=== PATIENT | female | born 1980 | race Two or more races ===

== ENCOUNTER 2016-08-03 16:13 | Emergency (ER) | payer BC ==
[2016-08-03] MEDS ORDERED: IV NORMAL SALINE 1000ML BAG 1,000 ML IV ONE (16:45)
[2016-08-03] MEDS ORDERED: FAMOTIDINE 20 MG/2 ML VIAL IVP ONE (16:45)
[2016-08-03] MEDS: MORPHINE SULFATE 10 MG/ML VIAL. IV ONE ×2 (16:45→17:14)
[2016-08-03] MEDS ORDERED: LIDO:MAALOX:DONNATAL 1:1:1 15 ML SINGLE DOSE SWSW ONE (16:45)
--- NOTE | 2016-08-03 16:52 | PHYS DOC ---
Past Medical History Past Medical History: Diabetes-Type II, GERD Past Surgical History: Other Additional Past Surgical Histo: EGD, hital hernia Alcohol Use: None Drug Use: None Adult General Chief Complaint Chief Complaint: FLANK PAIN HPI HPI Patient is a 35 year old female with history of gestational diabetes, acid reflux, who presents today with midepigastric radiating to her back, as well as moderate right upper quadrant abdominal pain. Patient states the midepigastric abdominal pain is chronic due to her acid reflex, she states she was seen by the PCP today and was sent to the ED for abdominal ultrasound to check on her gallbladder. Patient states she takes Tums for her acid reflex. She states she has already seen GI for her chronic acid reflex. Patient denies any chance she is though she states she has an Implanon which has . Denies any nausea vomiting. Denies any urgency frequency or dysuria. Review of Systems Review of Systems Constitutional: Denies fever or chills [] Eyes: Denies change in visual acuity, redness, or eye pain [] HENT: Denies nasal congestion or sore throat [] Respiratory: Denies cough or shortness of breath [] Cardiovascular: No additional information not addressed in HPI [] GI: epigastric and right upper quadrant abdominal pain, : Denies dysuria or hematuria [] Musculoskeletal: Denies back pain or joint pain [] Integument: Denies rash or skin lesions [] Neurologic: Denies headache, focal weakness or sensory changes [] Endocrine: Denies polyuria or polydipsia [] Current Medications Current Medications Current Medications Medications (Trade) Dose Ordered Sig/[facility] Start Time Stop Time Status Last Admin Dose Admin Famotidine 20 mg 20 mg 1X ONCE 08/03/16 16:45 08/03/16 17:08 DC 08/03/16 17:13 20 MG Morphine Sulfate 5 mg 1X ONCE 08/03/16 16:45 08/03/16 17:08 DC Multi-Ingredient Mouthwash/Gargle (Gi Cocktail Single Dose) 15 ml 1X ONCE 08/03/16 16:45 08/03/16 17:08 DC 08/03/16 17:14 15 ML Ondansetron HCl (Zofran Odt) 4 mg 1X ONCE 08/03/16 17:00 08/03/16 17:08 DC 08/03/16 17:13 4 MG Potassium Chloride (Klor-Con) 20 meq 1X ONCE 08/03/16 18:45 08/03/16 18:46 DC Sodium Chloride (Iv Sodium Chloride 0.9% 1000ml Bag) 1,000 ml @ 1,000 mls/hr 1X ONCE 08/03/16 16:45 08/03/16 17:44 DC 08/03/16 17:14 1,000 MLS/HR Allergies Allergies Allergies Coded Allergies Type Severity Reaction Last Updated Verified No Known Drug Allergies 08/03/16 No Physical Exam Physical Exam Constitutional: Well developed, well nourished, no acute distress, non-toxic appearance. [] HENT: Normocephalic, atraumatic, bilateral external ears normal, oropharynx moist, no oral exudates, nose normal. [] Eyes: PERRLA, EOMI, conjunctiva normal, no discharge. [] Neck: Normal range of motion, no tenderness, supple, no stridor. [] Cardiovascular:Heart rate regular rhythm, no murmur [] Lungs & Thorax: Bilateral breath sounds clear to auscultation [] Abdomen: Rounded abdomen. Bowel sounds normal, soft, slight right upper quadrant and mid epigastric tenderness, negative Bahena's sign, negative obturator sign,negative Rovsing sign guarding no rebound tenderness, no masses, no pulsatile masses. [] Skin: Warm, dry, no erythema, no rash. [] Back: No tenderness, no CVA tenderness. [] Extremities: No tenderness, no cyanosis, no clubbing, ROM intact, no edema. [] Neurologic: Alert and oriented X 3, normal motor function, normal sensory function, no focal deficits noted. [] Psychologic: Affect normal, judgement normal, mood normal. [] Current Patient Data Vital Signs Vital Signs Date Time Temp Pulse Resp B/P Pulse Ox O2 Delivery O2 Flow Rate FiO2 08/03/16 18:00 72 120/73 98 Room Air 08/03/16 16:37 98.6 18 98.6 Lab Values Laboratory Tests Test 08/03/16 16:46 08/03/16 17:05 Urine Color Yellow Urine Clarity Clear Urine pH 6.0 Urine Specific [place] 1.010 Urine Protein Negativemg/dL (NEG-TRACE) Urine Glucose (UA) Negativemg/dL (NEG) Urine Ketones (Stick) 40mg/dL (NEG) Urine Blood Negative (NEG) Urine Nitrite Negative (NEG) Urine Bilirubin Negative (NEG) Urine Urobilinogen Dipstick 0.2mg/dL (0.2 mg/dL) Urine Leukocyte Esterase Negative (NEG) Urine RBC 0/HPF (0-2) Urine WBC Occ/HPF (0-4) Urine Squamous Epithelial Cells Occ/LPF Urine Bacteria Few/HPF (0-FEW) Urine Mucus Slight/LPF Urine Test Negative (NEG) White Blood Count 11.5x10^3/uL (4.0-11.0) H Red Blood Count 4.83x10^6/uL (3.50-5.40) Hemoglobin 15.1g/dL (12.0-15.5) Hematocrit 44.9% (36.0-47.0) Mean Corpuscular Volume 93fL (79-100) Mean Corpuscular Hemoglobin 31pg (25-35) Mean Corpuscular Hemoglobin Concent 34g/dL (31-37) Red Cell Distribution Width 12.7% (11.5-14.5) Platelet Count 274x10^3/uL (140-400) Neutrophils (%) (Auto) 73% (31-73) Lymphocytes (%) (Auto) 20% (24-48) L Monocytes (%) (Auto) 6% (0-9) Eosinophils (%) (Auto) 1% (0-3) Basophils (%) (Auto) 1% (0-3) Neutrophils # (Auto) 8.4x10^3uL (1.8-7.7) H Lymphocytes # (Auto) 2.3x10^3/uL (1.0-4.8) Monocytes # (Auto) 0.7x10^3/uL (0.0-1.1) Eosinophils # (Auto) 0.1x10^3/uL (0.0-0.7) Basophils # (Auto) 0.1x10^3/uL (0.0-0.2) Sodium Level 145mmol/L (136-145) Potassium Level 3.3mmol/L (3.5-5.1) L Chloride Level 107mmol/L (98-107) Carbon Dioxide Level 29mmol/L (21-32) Anion Gap 9 (6-14) Blood Urea Nitrogen 3mg/dL (7-20) L Creatinine 0.6mg/dL (0.6-1.0) Estimated GFR (Cockcroft-Gault) 115.1 BUN/Creatinine Ratio 5 (6-20) L Glucose Level 103mg/dL (70-99) H Calcium Level 9.0mg/dL (8.5-10.1) Total Bilirubin 0.4mg/dL (0.2-1.0) Aspartate Amino Transferase (AST) 17U/L (15-37) Alanine Aminotransferase (ALT) 40U/L (14-59) Alkaline Phosphatase 67U/L (46-116) Total Protein 7.6g/dL (6.4-8.2) Albumin 3.7g/dL (3.4-5.0) Albumin/Globulin Ratio 0.9 (1.0-1.7) L Lipase 138U/L (73-393) Laboratory Tests 08/03/16 17:05 Laboratory Tests 08/03/16 17:05 EKG EKG [] Radiology/Procedures Radiology/Procedures [] Course & Med Decision Making Course & Med Decision Making Pertinent Labs and Imaging studies reviewed. (See chart for details) Patient with history of acid reflex is in the ED today for midepigastric radiating to her back, as well as moderate right upper quadrant abdominal pain. She was seen by the PCP today for acid reflex and was sent to the ED for an ultrasound to check on her gallbladder. Negative urine hCG, CBC with a WBC of 11.5, CMP with potassium of 3.3, patient was given 20 mEq of potassium replacement in the ED. Lipase is normal, urine analysis is negative for infection. Abdominal ultrasound is negative for any acute findings. Patient's symptoms are more consistent with acid reflex. She states she has a prescription for medication that was sent to her pharmacist by her PCP for GERD which i encouraged her to ensure she takes it. She is currently comfortable in no distress. She was given GI cocktail famotidine and morphine in the ED with very good relief of her symptoms. She was provided return precautions and discharged in stable condition Dragon Disclaimer Dragon Disclaimer This electronic medical record was generated, in whole or in part, using a voice recognition dictation system. Departure Departure Impression: Primary Impression: GERD (gastroesophageal reflux disease) Disposition: 01 HOME, SELF-CARE Condition: STABLE Referrals: EDUIN YU MD follow up with the GI doctor and your own doctor in one week Patient Instructions: Gastroesophageal Reflux Disease, Adult, [id number] Additional Instructions: You were seen for acid reflex. Please take the medication your doctor sent to pharmacy. Come back to the Ed if symptoms worsen. Problem Qualifiers Primary Impression: GERD (gastroesophageal reflux disease) Esophagitis presence: esophagitis presence not specified Qualified Code: K21.9 - Gastro-esophageal reflux disease without esophagitis LEONIDES CHAPIN APRN Aug 03, 2016 16:52
[2016-08-03] MEDS ORDERED: ONDANSETRON ODT 4 MG TAB.RAPDIS PO ONE (17:00)
[2016-08-03 17:06] LABS: NEG OBC UR NEG; POS OBC UR POS
[2016-08-03 17:08] LABS: BILIRUBIN,URINE NEGATIVE (NEG); GLUCOSE,URINE NEGATIVE (NEG); NITRITE,URINE NEGATIVE (NEG); PROTEIN,URINE NEGATIVE (NEG-TRACE); UROBILINOGEN,URINE 0.2 mg/dL (0.2 mg/dL)
[2016-08-03 17:15] LABS: BASO # 0.1 x10^3/uL (0.0-0.2); BASO % 1 % (0-3); EOS % 1 % (0-3); HEMATOCRIT 44.9 % (36.0-47.0); HEMOGLOBIN 15.1 g/dL (12.0-15.5); LYMPH # 2.3 x10^3/uL (1.0-4.8); LYMPH % 20 % (24-48); MEAN CORPUSCULAR HEMOGLOBIN 31 pg (25-35); MEAN CORPUSCULAR HGB CONC 34 g/dL (31-37); MEAN CORPUSCULAR VOLUME 93 fL (79-100); MONO % 6 % (0-9); NEUT % 73 % (31-73); PLATELET COUNT 274 x10^3/uL (140-400); RED BLOOD COUNT 4.83 x10^6/uL (3.50-5.40); RED CELL DISTRIBUTION WIDTH 12.7 % (11.5-14.5); WHITE BLOOD COUNT 11.5 x10^3/uL (4.0-11.0)
[2016-08-03 17:21] LABS: CREATININE 0.6 mg/dL (0.6-1.0); GFR 115.1; POTASSIUM 3.3 mmol/L (3.5-5.1)
[2016-08-03 17:27] LABS: ALBUMIN 3.7 g/dL (3.4-5.0); ALBUMIN/GLOBULIN RATIO 0.9 (1.0-1.7); TOTAL BILIRUBIN 0.4 mg/dL (0.2-1.0); TOTAL PROTEIN 7.6 g/dL (6.4-8.2)
[2016-08-03 17:45] LABS: BACTERIA,URINE FEW /HPF (0-FEW); RBC,URINE 0 /HPF (0-2); SQUAMOUS EPITHELIAL CELL,UR OCC /LPF; WBC,URINE OCC /HPF (0-4)
--- NOTE | 2016-08-03 17:58 | RAD ---
PROCEDURE Abdomen sonogram. HISTORY Right upper quadrant pain. TECHNIQUE Sonographic imaging of the abdomen was performed. COMPARISON None. FINDINGS The liver is normal in size. No focal hepatic lesion is seen. There is hepatic steatosis. The gallbladder and common bile duct are unremarkable. The kidneys, spleen, aorta and inferior vena cava are unremarkable. The pancreatic tail is obscured due to bowel gas. IMPRESSION 1. Hepatic steatosis. 2. Obscured pancreatic tail due to bowel gas. 3. Otherwise, unremarkable abdomen sonogram. Electronically signed by: Kayla Menchaca (Aug 03, 2016 17:57:45)
[2016-08-03] MEDS ORDERED: POTASSIUM CHLORIDE 20 MEQ TABLET.ER. PO ONE (18:45)
[2016-08-03 19:00] VITALS: BP 117/78
== END 2016-08-03 19:29 | disposition home or self-care (01) ==
LOC: ER 16:13
DX: K21.9 Gastro-esophageal reflux disease without esophagitis (principal); E11.9 Type 2 diabetes mellitus without complications
CPT/HCPCS: 36415; 76700; 80053; 81001; 81025; 83690; 85027; 96361; 96374; 99285; J7030; Q0162; S0028; J2270

== ENCOUNTER 2016-09-16 08:27 | Emergency (ER) | payer BC ==
[~2016-09-16] VITALS: Ht 154.9 cm; Wt 84.8 kg
[2016-09-16] MEDS ORDERED: IV NORMAL SALINE 1000ML BAG 1,000 ML IV SCH (08:41)
[2016-09-16] MEDS ORDERED: 0.9 % SODIUM CHLORIDE 10 ML DISP.SYRIN. IV PRN (08:45)
[2016-09-16] MEDS ORDERED: METOCLOPRAMIDE HCL 10 MG/2 ML VIAL. IV ONE (08:45)
[2016-09-16] MEDS ORDERED: DIPHENHYDRAMINE 50 MG/ML VIAL IVP ONE (08:45)
[2016-09-16] MEDS ORDERED: KETOROLAC TROMETHAMINE 30 MG/ML SYRINGE. IV ONE (08:45)
--- NOTE | 2016-09-16 08:53 | PHYS DOC ---
Past Medical History Past Medical History: Diabetes-Type II, GERD Additional Past Medical Histor: hiatal hernia Past Surgical History: Other Additional Past Surgical Histo: EGD, hital hernia Alcohol Use: None Drug Use: None Adult General Chief Complaint Chief Complaint: HEADACHE HPI HPI Patient is a 36 year old female presents emergency room with multiple complaints: 1. Atraumatic headache that is been ongoing for greater than a month. Patient states that she had a CT scan at [facility] last month which was reported as normal with the exception of sinusitis. She has also been seen by ENT at [facility] and is currently taking Flonase and Afrin nasal spray. Patient denies history headaches. Patient denies sudden onset of this headache. She denies any previous head injuries such as skull fractures or brain bleeds. 2. Epigastric pain with reflux that's been ongoing for 2-1/2-3 weeks. Patient is currently on Prilosec for her reflux. She does not see a cleaner and presser. She has had a workup done at this facility in the past for evaluation of her gallbladder and other gastrointestinal ailments. 3. Atraumatic low back pain for one and a half weeks. Patient denies any history of chronic back pain. She denies any history of spinal column or spinal cord injuries. She denies any history of bone forming disorders. Patient states that the pain does not radiate. She denies saddle anesthesia or bowel/urinary incontinence. Patient denies hospitalization, antibiotic use or foreign travel within the past 90 days. Review of Systems Review of Systems Constitutional: Denies fever or chills [] Eyes: Denies change in visual acuity, redness, or eye pain [] HENT: Denies nasal congestion or sore throat [] Respiratory: Denies cough or shortness of breath [] Cardiovascular: No additional information not addressed in HPI [] GI: Denies abdominal pain, nausea, vomiting, bloody stools or diarrhea [] : Denies dysuria or hematuria [] Musculoskeletal: Denies back pain or joint pain [] Integument: Denies rash or skin lesions [] Neurologic: Denies headache, focal weakness or sensory changes [] Endocrine: Denies polyuria or polydipsia [] Current Medications Current Medications Current Medications Medications (Trade) Dose Ordered Sig/[facility] Start Time Stop Time Status Last Admin Dose Admin Diphenhydramine HCl (Benadryl) 25 mg 1X ONCE 09/16/16 08:45 09/16/16 08:53 DC 09/16/16 09:01 25 MG Ketorolac Tromethamine (Toradol) 30 mg 1X ONCE 09/16/16 08:45 09/16/16 08:53 DC 09/16/16 09:02 30 MG Metoclopramide HCl (Reglan) 10 mg 1X ONCE 09/16/16 08:45 09/16/16 08:53 DC 09/16/16 09:02 10 MG Sodium Chloride (Iv Sodium Chloride 0.9% 1000ml Bag) 1,000 ml @ 1,000 mls/hr Q1H 09/16/16 08:41 09/16/16 09:40 DC 09/16/16 09:02 1,000 MLS/HR Sodium Chloride (Normal Saline Flush) 10 ml QSHIFT PRN 09/16/16 08:45 Allergies Allergies Allergies Coded Allergies Type Severity Reaction Last Updated Verified No Known Drug Allergies 08/03/16 No Physical Exam Physical Exam Constitutional: Well developed, well nourished, no acute distress, non-toxic appearance. Patient sitting upright on the edge of the bed. HENT: Normocephalic, atraumatic, bilateral external ears normal, oropharynx moist, no oral exudates, boggy nasal mucosa with scant amount of clear rhinorrhea. Patient complains of tenderness to percussion to both her frontal and maxillary sinuses. Eyes: PERRLA, EOMI, conjunctiva normal, no discharge. Direct funduscopic exam shows bilateral homogenous fundi without vascular abnormalities. Optic disc and cup with crisp margins. Neck: Normal range of motion, no tenderness, supple, no stridor. Negative Brudzinski's. There is no cervical lymphadenopathy. Cardiovascular:Heart rate regular rhythm, no murmur Lungs & Thorax: Bilateral breath sounds clear to auscultation Abdomen: Abdomen is soft and nondistended. There are normal active bowel sounds in all 4 quadrants. There is no palpable defect to the abdominal wall or pulsatile mass. Patient complains of tenderness in the epigastric region. There is no rebound or guarding. Skin: Warm, dry, no erythema, no rash. [] Back back is normal in appearance. There is no CVA tenderness. There is tenderness to palpation to bilateral paraspinous soft tissues at the level of L4 -L5. There is no palpable defect, deformity or spasm. Extremities: No tenderness, no cyanosis, no clubbing, ROM intact, no edema. [] Neurologic: Alert and oriented X 3, cranial nerves II through XII are intact. Patient is able perform rapid alternating movement and [id number] without difficulty. Romberg is negative for pronator drift. Patient ambulatory a steady , unaided gait. Psychologic: Affect normal, judgement normal, dysphoric mood with flat affect. Current Patient Data Vital Signs Vital Signs Date Time Temp Pulse Resp B/P Pulse Ox O2 Delivery O2 Flow Rate FiO2 09/16/16 08:37 98.6 75 18 121/71 96 Room Air 98.6 Lab Values Laboratory Tests Test 09/16/16 08:37 09/16/16 09:00 Urine Collection Type Unknown Urine Color Yellow Urine Clarity Clear Urine pH 7.5 Urine Specific [place] <=1.005 Urine Protein Negativemg/dL (NEG-TRACE) Urine Glucose (UA) Negativemg/dL (NEG) Urine Ketones (Stick) Negativemg/dL (NEG) Urine Blood Large (NEG) Urine Nitrite Negative (NEG) Urine Bilirubin Negative (NEG) Urine Urobilinogen Dipstick 0.2mg/dL (0.2 mg/dL) Urine Leukocyte Esterase Negative (NEG) Urine RBC 1-2/HPF (0-2) Urine WBC 0/HPF (0-4) Urine Squamous Epithelial Cells Mod/LPF Urine Bacteria Few/HPF (0-FEW) White Blood Count 7.8x10^3/uL (4.0-11.0) Red Blood Count 4.37x10^6/uL (3.50-5.40) Hemoglobin 13.9g/dL (12.0-15.5) Hematocrit 41.6% (36.0-47.0) Mean Corpuscular Volume 95fL (79-100) Mean Corpuscular Hemoglobin 32pg (25-35) Mean Corpuscular Hemoglobin Concent 33g/dL (31-37) Red Cell Distribution Width 13.3% (11.5-14.5) Platelet Count 293x10^3/uL (140-400) Neutrophils (%) (Auto) 67% (31-73) Lymphocytes (%) (Auto) 26% (24-48) Monocytes (%) (Auto) 6% (0-9) Eosinophils (%) (Auto) 0% (0-3) Basophils (%) (Auto) 1% (0-3) Neutrophils # (Auto) 5.3x10^3uL (1.8-7.7) Lymphocytes # (Auto) 2.0x10^3/uL (1.0-4.8) Monocytes # (Auto) 0.5x10^3/uL (0.0-1.1) Eosinophils # (Auto) 0.0x10^3/uL (0.0-0.7) Basophils # (Auto) 0.0x10^3/uL (0.0-0.2) Sodium Level 147mmol/L (136-145) H Potassium Level 3.6mmol/L (3.5-5.1) Chloride Level 108mmol/L (98-107) H Carbon Dioxide Level 30mmol/L (21-32) Anion Gap 9 (6-14) Blood Urea Nitrogen 5mg/dL (7-20) L Creatinine 0.6mg/dL (0.6-1.0) Estimated GFR (Cockcroft-Gault) 114.4 BUN/Creatinine Ratio 8 (6-20) Glucose Level 104mg/dL (70-99) H Calcium Level 9.3mg/dL (8.5-10.1) Total Bilirubin 0.5mg/dL (0.2-1.0) Aspartate Amino Transferase (AST) 17U/L (15-37) Alanine Aminotransferase (ALT) 30U/L (14-59) Alkaline Phosphatase 64U/L (46-116) Total Protein 7.3g/dL (6.4-8.2) Albumin 3.5g/dL (3.4-5.0) Albumin/Globulin Ratio 0.9 (1.0-1.7) L Lipase 256U/L (73-393) Laboratory Tests 09/16/16 09:00 Laboratory Tests 09/16/16 09:00 EKG EKG [] Radiology/Procedures Radiology/Procedures [] Course & Med Decision Making Course & Med Decision Making Patient reevaluated by me after receiving 30 mg of Toradol, 10 mg Reglan and 25 mg of Benadryl IV. She states that the pressure has relieved somewhat. She states that she is much more comfortable now. I reviewed her test results with her and the need to follow-up with her ear nose and throat physician. Patient also received 10 mg of Decadron IV to help with inflammation in her sinuses. Veroniqueon Disclaimer Veroniqueon Disclaimer This electronic medical record was generated, in whole or in part, using a voice recognition dictation system. Departure Departure Impression: Primary Impression: Sinusitis Additional Impressions: GERD (gastroesophageal reflux disease) Low back pain Disposition: 01 HOME, SELF-CARE Condition: IMPROVED Referrals: RADHA MCCLURE RN REFERRAL (PCP) Patient Instructions: Back Pain, Adult, [id number], Diet for Gastroesophageal Reflux Disease, Adult, [id number], Gastroesophageal Reflux Disease, Adult, [id number], Sinusitis, [id number] Additional Instructions: 1. Take the medication as prescribed. As discussed, take Mucinex D twice a day as well. Drink 8-10, 10 ounce glasses of water a day. 2. Review the discharge instructions for self-care and reasons to return the emergency department. 3. Contact your primary care doctor as well as your ENT doctor today to schedule follow-up. 4. You received a long-acting steroid here in the emergency room call Decadron. Scripts Orphenadrine Citrate 100 Mg Tablet.er100 Mg PO BID #14 Prov:JOSHUA HUERTA 09/16/16 Hydrocodone/Apap 5-325 ([place] 5-325 Tablet)1 Each Tablet1 Tab PO PRN Q6HRS PRN PAIN #15 TAB Prov:JOSHUA HUERTA 09/16/16 Problem Qualifiers JOSHUA HUERTA Sep 16, 2016 08:53
[2016-09-16 09:03] LABS: BILIRUBIN,URINE NEGATIVE (NEG); GLUCOSE,URINE NEGATIVE (NEG); NITRITE,URINE NEGATIVE (NEG); PH,URINE 7.5; PROTEIN,URINE NEGATIVE (NEG-TRACE); UROBILINOGEN,URINE 0.2 mg/dL (0.2 mg/dL)
[2016-09-16 09:09] LABS: BACTERIA,URINE FEW /HPF (0-FEW); SQUAMOUS EPITHELIAL CELL,UR MOD /LPF; WBC,URINE 0 /HPF (0-4)
[2016-09-16 09:16] LABS: BASO % 1 % (0-3); EOS % 0 % (0-3); HEMATOCRIT 41.6 % (36.0-47.0); HEMOGLOBIN 13.9 g/dL (12.0-15.5); LYMPH % 26 % (24-48); MEAN CORPUSCULAR HEMOGLOBIN 32 pg (25-35); MEAN CORPUSCULAR HGB CONC 33 g/dL (31-37); MEAN CORPUSCULAR VOLUME 95 fL (79-100); MONO % 6 % (0-9); NEUT % 67 % (31-73); PLATELET COUNT 293 x10^3/uL (140-400); RED BLOOD COUNT 4.37 x10^6/uL (3.50-5.40); RED CELL DISTRIBUTION WIDTH 13.3 % (11.5-14.5); WHITE BLOOD COUNT 7.8 x10^3/uL (4.0-11.0)
[2016-09-16 09:32] LABS: CALCIUM 9.3 mg/dL (8.5-10.1); CREATININE 0.6 mg/dL (0.6-1.0); GFR 114.4; POTASSIUM 3.6 mmol/L (3.5-5.1)
[2016-09-16 09:37] LABS: ALBUMIN 3.5 g/dL (3.4-5.0); ALBUMIN/GLOBULIN RATIO 0.9 (1.0-1.7); TOTAL BILIRUBIN 0.5 mg/dL (0.2-1.0); TOTAL PROTEIN 7.3 g/dL (6.4-8.2)
[2016-09-16] MEDS ORDERED: DEXAMETHASONE SOD PHOS 20 MG/5 ML VIAL. IV ONE (10:00)
[2016-09-16] MEDS ORDERED: ORPH100T PO (10:04)
[2016-09-16] MEDS ORDERED: HYDR-971 PO (10:04)
[2016-09-16 10:10] VITALS: BP 126/74
== END 2016-09-16 10:15 | disposition home or self-care (01) ==
LOC: ER 08:27
DX: J32.9 Chronic sinusitis, unspecified (principal); K21.9 Gastro-esophageal reflux disease without esophagitis; M54.5 Low back pain; E11.9 Type 2 diabetes mellitus without complications
CPT/HCPCS: 36415; 80053; 81001; 81025; 83690; 85027; 96361; 96374; 96375; 99284; J1100; J1200; J1885; J2765; J7030

== ENCOUNTER 2016-09-22 09:23 | Inpatient (IN) | payer BC ==
[~2016-09-22] VITALS: Ht 154.9 cm; Wt 84.4 kg
[~2016-09-22 09:23] MED LIST: HYDR-971 PO; ORPH100T PO
--- NOTE | 2016-09-22 09:53 | EKG ---
[facility] [address] [place] [address] Test Date: 2016-09-22 Test Time: 09:40:44 Pat Name: PEMA FISHER Department: Room: Gender: F [employer] Officer: : 1980 Requested By: YOLANDA AVALOS Order Number: [id number] Reading MD: Yara Chaudhari Measurements Intervals [place] Rate: 79 P: 0 [place]: 268 QRS: -22 QRSD: 82 T: 21 QT: 374 QTc: 430 Interpretive Statements JUNCTIONAL RHYTHM LEFTWARD AXIS QRS(T) CONTOUR ABNORMALITY CONSIDER ANTEROLATERAL MYOCARDIAL DAMAGE T ABNORMALITY IN ANTERIOR LEADS RI6.01 No previous ECG available for comparison Electronically Signed On 09-22-2016 21:00:31 CDT by Yara Chaudhari
[2016-09-22] MEDS ORDERED: MORPHINE SULFATE 4 MG/ML DISP.SYRIN. IV/SQ PRN (10:00)
[2016-09-22] MEDS ORDERED: ONDANSETRON PF 4 MG/2 ML VIAL. IV ONE (10:00)
[2016-09-22] MEDS ORDERED: ASPIRIN 325 MG TABLET PO ONE (10:00)
[2016-09-22] MEDS ORDERED: LIDO:MAALOX:DONNATAL 1:1:1 15 ML SINGLE DOSE SWSW ONE (10:00)
[2016-09-22 10:28] LABS: BASO # 0.1 x10^3/uL (0.0-0.2); BASO % 1 % (0-3); EOS % 0 % (0-3); HEMATOCRIT 44.2 % (36.0-47.0); HEMOGLOBIN 15.3 g/dL (12.0-15.5); LYMPH # 2.3 x10^3/uL (1.0-4.8); LYMPH % 18 % (24-48); MEAN CORPUSCULAR HEMOGLOBIN 32 pg (25-35); MEAN CORPUSCULAR HGB CONC 35 g/dL (31-37); MEAN CORPUSCULAR VOLUME 93 fL (79-100); MONO % 6 % (0-9); NEUT % 76 % (31-73); PLATELET COUNT 338 x10^3/uL (140-400); RED BLOOD COUNT 4.77 x10^6/uL (3.50-5.40); RED CELL DISTRIBUTION WIDTH 13.4 % (11.5-14.5); WHITE BLOOD COUNT 12.7 x10^3/uL (4.0-11.0)
[2016-09-22 10:40] LABS: CALCIUM 9.7 mg/dL (8.5-10.1); CREATININE 0.6 mg/dL (0.6-1.0); GFR 114.4; POTASSIUM 3.4 mmol/L (3.5-5.1)
[2016-09-22 10:48] LABS: ALBUMIN 3.9 g/dL (3.4-5.0); TOTAL BILIRUBIN 0.8 mg/dL (0.2-1.0); TOTAL PROTEIN 7.8 g/dL (6.4-8.2)
--- NOTE | 2016-09-22 10:54 | RAD ---
EXAM: Chest, 2 views. HISTORY: Chest pain. COMPARISON: 10/27/2007. FINDINGS: Frontal and lateral views of the chest are obtained. There is no infiltrate, effusion or pneumothorax. The heart is normal in size. IMPRESSION: No acute pulmonary finding.
[2016-09-22] MEDS ORDERED: POTASSIUM CHLORIDE 20 MEQ TABLET.ER. PO ONE (11:00)
[2016-09-22] MEDS ORDERED: POTASSIUM CHLORIDE 20 MEQ/15 ML ORAL LIQUID. PO ONE (11:30)
[2016-09-22 11:35] LABS: CHOLESTEROL/HDL RATIO 2.5
--- NOTE | 2016-09-22 11:40 | PDOC2 ---
CARDIAC CONSULT DATE OF CONSULT Date of Consult DATE: 09/22/16 TIME: 11:36 REASON FOR CONSULT Reason for Consult: Chest pain REFERRING PHYSICIAN Referring Physician: Augustin SOURCE Source: Chart review, Patient HISTORY OF PRESENT ILLNESS HISTORY OF PRESENT ILLNESS This is a pleasant 36 yo female admitted for complains of chest pain. Reports that in the last 2 days she has been waking up with midsternal chest pressure sometimes squeezing. This lasted intermittently all day yesterday and has been feeling anxious in the last 2 weeks associated with insomnia. She did report that she was mildly SOA with her CP. Also notable for sensation of bloating but no nausea. Reports no radiating discomfort, no palpitations. She did have some lightheadedness yesterday while sitting but no passing out. She only takes omeprazol with occasional tylenol or ibuprofen. She also fell to her side yesterday indicating that she lost her balance while walking but no injuries sustained. Her fall occurred late after her CP and dizziness events indicating that that her CP is not related to her fall. Currently she is CP free and remains duplicated with palpation midsternal. Denies any CAD, VTE, and verbalized no significant heartburn as of late. She has been sleeping close to upright and has been taking her prilosec regularly. PAST MEDICAL HISTORY Cardiovascular: No pertinent hx Pulmonary: No pertinent hx CENTRAL NERVOUS SYSTEM: Other (No pertinent history) GI: GERD Heme/Onc: No pertinent hx Hepatobiliary: No pertinent hx Psych: Depression () Musculoskeletal: Other (obesity) Rheumatologic: No pertinent hx Infectious disease: No pertinent hx ENT: Sincusitis Renal/: No pertinent hx, Other (2 miscarriages) Endocrine: Diabetes (gestational DM), Other (LA implanon) Dermatology: No pertinent hx Grav: 6 Para: 4 PAST SURGICAL HISTORY Past Surgical History EGD FAMILY HISTORY Family History noncontributory to CV SOCIAL HISTORY Smoke: No ALCOHOL: none Drugs: None Lives: with Family CURRENT MEDICATIONS CURRENT MEDICATIONS Current Medications Medications (Trade) Dose Ordered Sig/Aleshia Route PRN Reason Start Time Stop Time Status Last Admin Dose Admin Aspirin (Ben Aspirin) 325 mg 1X ONCE PO 09/22/16 10:00 09/22/16 10:01 DC 09/22/16 10:09 Ondansetron HCl (Zofran) 4 mg 1X ONCE IV 09/22/16 10:00 09/22/16 10:01 DC 09/22/16 10:12 Multi-Ingredient Mouthwash/Gargle (Gi Cocktail Single Dose) 15 ml 1X ONCE SWSW 09/22/16 10:00 09/22/16 10:01 DC 09/22/16 10:00 Potassium Chloride (Klor-Con) 40 meq 1X ONCE PO 09/22/16 11:00 09/22/16 11:15 DC 09/22/16 11:05 Potassium Chloride (KCl Oral Soln) 40 meq 1X ONCE PO 09/22/16 11:30 09/22/16 11:31 DC 09/22/16 11:30 ALLERGIES ALLERGIES: Coded Allergies: No Known Drug Allergies (Unverified , 08/03/16) ROS Review of System 14 point ROS evaluated with pertinent positives noted per HPI PHYSICAL EXAM General: Alert, Oriented X3, Cooperative, No acute distress HEENT: Atraumatic, Mucous membr. moist/pink Lungs: Clear to auscultation, Normal air movement Heart: Regular rate, Normal S1, Normal S2, No murmurs Abdomen: Soft, No tenderness Extremities: No cyanosis, No edema Skin: No breakdown, No significant lesion Neuro: Normal speech, Sensation intact Psych/Mental Status: Mental status NL, Mood NL MUSCULOSKELETAL: Full range of motion without pain, Other (midsternal pain wasily reproduible with palpation) VITALS VITALS Vital Signs Date Time Temp Pulse Resp B/P Pulse Ox O2 Delivery O2 Flow Rate FiO2 09/22/16 09:28 98.3 75 20 133/86 98 Room Air 98.3 LABS Lab: Laboratory Tests Test 09/22/16 10:15 White Blood Count 12.7x10^3/uL (4.0-11.0) Red Blood Count 4.77x10^6/uL (3.50-5.40) Hemoglobin 15.3g/dL (12.0-15.5) Hematocrit 44.2% (36.0-47.0) Mean Corpuscular Volume 93fL (79-100) Mean Corpuscular Hemoglobin 32pg (25-35) Mean Corpuscular Hemoglobin Concent 35g/dL (31-37) Red Cell Distribution Width 13.4% (11.5-14.5) Platelet Count 338x10^3/uL (140-400) Neutrophils (%) (Auto) 76% (31-73) Lymphocytes (%) (Auto) 18% (24-48) Monocytes (%) (Auto) 6% (0-9) Eosinophils (%) (Auto) 0% (0-3) Basophils (%) (Auto) 1% (0-3) Neutrophils # (Auto) 9.6x10^3uL (1.8-7.7) Lymphocytes # (Auto) 2.3x10^3/uL (1.0-4.8) Monocytes # (Auto) 0.7x10^3/uL (0.0-1.1) Eosinophils # (Auto) 0.0x10^3/uL (0.0-0.7) Basophils # (Auto) 0.1x10^3/uL (0.0-0.2) Sodium Level 147mmol/L (136-145) Potassium Level 3.4mmol/L (3.5-5.1) Chloride Level 106mmol/L (98-107) Carbon Dioxide Level 32mmol/L (21-32) Anion Gap 9 (6-14) Blood Urea Nitrogen 6mg/dL (7-20) Creatinine 0.6mg/dL (0.6-1.0) Estimated GFR (Cockcroft-Gault) 114.4 BUN/Creatinine Ratio 10 (6-20) Glucose Level 107mg/dL (70-99) Calcium Level 9.7mg/dL (8.5-10.1) Magnesium Level 2.5mg/dL (1.8-2.4) Total Bilirubin 0.8mg/dL (0.2-1.0) Aspartate Amino Transf (AST/SGOT) 16U/L (15-37) Alanine Aminotransferase (ALT/SGPT) 40U/L (14-59) Alkaline Phosphatase 66U/L (46-116) Troponin I Quantitative < 0.017ng/mL (0.000-0.055) JP-Ftu-P-Type Natriuretic Peptide 9pg/mL (0-124) Total Protein 7.8g/dL (6.4-8.2) Albumin 3.9g/dL (3.4-5.0) Albumin/Globulin Ratio 1.0 (1.0-1.7) Triglycerides Level 47mg/dL (0-150) Cholesterol Level 155mg/dL (0-200) LDL Cholesterol, Calculated 85mg/dL (0-100) VLDL Cholesterol, Calculated 9mg/dL (0-40) HDL Cholesterol 61mg/dL (40-60) Cholesterol/HDL Ratio 2.5 ASSESSMENT/PLAN ASSESSMENT/PLAN 1. Atypical chest pain: likely MSK vs GI, easily reproducible. Initial troponin normal. EKG SR with mild T wave inversions to V2-V5, new by comparison. 2. Presyncope: lightheadedness while sitting at home. Inadequate hydration or anxiety induced? 3. Nontraumatic mechanical fall: lost her balance. Not related to above. 3. Possible generalized anxiety disorder: hx of past depression. defer to PCP 4. Implanon to LA in place: 2014, due to be remove 09/2016 per pt 5. GERD with hiatal hernia: complaint with prilosec and has been sleeping sitting up. 6. Hypokalemia 7. Obesity 8. Hx of gestational DM: last noted 2011. Used to be on metformin and then diet controlled. Recommendations 1. Will trend troponin, TTE today. 2. Replace K, monitor tele for any arrhythmias. 3. lipids, TSH, Urine Preg test 4. Will consider for further cardiac workup pending results of diagnostics. 5. Discussed lifestyle modifications Problems: KIMBERLY DOYLE APRN Sep 22, 2016 11:40
[2016-09-22] MEDS ORDERED: MORPHINE SULFATE 2 MG/ML DISP.SYRIN. IV PRN (12:30)
[2016-09-22] MEDS ORDERED: ACETAMINOPHEN 325 MG TABLET. PO PRN (12:30)
[2016-09-22] MEDS ORDERED: ONDANSETRON PF 4 MG/2 ML VIAL. IV PRN (12:30)
[2016-09-22] MEDS ORDERED: NITROGLYCERIN SUBLINGUAL 0.4 MG BOTTLE OF 25. SL PRN (12:30)
--- NOTE | 2016-09-22 12:36 | HP ---
ADMIT DATE: 09/22/2016 CHIEF COMPLAINT: Chest pain. HISTORY OF PRESENT ILLNESS: The patient is a pleasant 36-year-old healthy female, who presents with chest pain. She states she goes in through her mid epigastrium area. She has associated headache. She thinks she is under a lot of pressure and has anxiety. When we did an EKG here in the ER, surprisingly, she did have some flipped T-waves I have discussed the case with the ER physician. We are going to admit the patient and consult Cardiology, because of the EKG changes. PAST MEDICAL HISTORY: Anxiety, GERD, depression and chronic pain. ALLERGIES: None. FAMILY HISTORY: She denies any coronary artery disease in the family. SOCIAL HISTORY: She does not drink, smoke or take drugs. She has 4 kids. MEDICATIONS: Reviewed, please refer to the MRAD. REVIEW OF SYSTEMS: GENERAL: No history of weight change, weakness or fevers. SKIN: No bruising, hair changes or rashes. EYES: No blurred, double or loss of vision. NOSE AND THROAT: No history of nosebleeds, hoarseness or sore throat. HEART: She complains chest pain. LUNGS: Denies cough, hemoptysis, wheezing or shortness of breath. GASTROINTESTINAL: She complains of constipation. GENITOURINARY: No history of frequency, urgency, hesitancy or nocturia. NEUROLOGIC: She complains of headache. PSYCHIATRIC: No history of panic, anxiety or depression. ENDOCRINE: No history of heat or cold intolerance, polyuria or polydipsia. EXTREMITIES: Denies muscle weakness, joint pain, pain on walking or stiffness. PHYSICAL EXAMINATION: VITAL SIGNS: Temperature afebrile, pulse 68, respirations 18, blood pressure 118/74. GENERAL: She is alert, cooperative, anxious. HEART: Normal S1, S2. LUNGS: Clear. ABDOMEN: Soft, positive bowel sounds, tender. EXTREMITIES: No edema. SKIN: No rashes. PSYCHIATRIC: She is anxious and depressed. VASCULAR: Good capillary refill. ENDOCRINE: No thyromegaly. LYMPHATICS: No cervical nodes. HEMATOPOIETIC: No bruising. LABORATORY DATA: White count 13, hemoglobin 15, platelets 338. Electrolytes: Sodium 147, potassium 3.4, chloride 106, bicarbonate 32, BUN 6, creatinine 0.6, glucose 107. Troponin is 0. EKG shows some inferior flipped T-waves. Chest x-ray is negative. ASSESSMENT AND PLAN: Chest pain with slightly changed EKG. We will admit the patient. Check serial enzymes and EKGs. Consult Cardiology. I discussed the case with nurse practitioner ____. I have started her on Prozac and p.r.n. Xanax as well for anxiety, Consult GI for abdominal pain. ANNA BULL DO DR: ANDI/juanita JOB#: [id number] / [id number]
--- NOTE | 2016-09-22 12:45 | PHYS DOC ---
Past Medical History Past Medical History: Diabetes-Type II, GERD Additional Past Medical Histor: hiatal hernia Past Surgical History: Other Additional Past Surgical Histo: EGD, hital hernia Alcohol Use: None Drug Use: None Adult General Chief Complaint Chief Complaint: CHEST WALL PAIN HPI HPI Patient is a 36 year old female who presents with chest pain. Patient reports onset of symptoms yesterday, significantly worsening about 2 hours prior to arrival. Reports substernal and epigastric pressure/tightness which is nonradiating. Reports associated shortness of breath and nausea, denies diaphoresis. Denies fevers or chills, cough, vomiting, lower extremity pain or swelling. Denies previous history of similar symptoms. History of hiatal hernia and has been treated for diabetes in the past. No known history of CAD or PE/ DVT in the patient or family members. Review of Systems Review of Systems Constitutional: Denies fever or chills Eyes: Denies change in visual acuity HENT: Denies nasal congestion or sore throat Respiratory: Denies cough, reports shortness of breath Cardiovascular: Reports chest pain, denies edema GI: Denies abdominal pain, nausea, vomiting, or diarrhea Musculoskeletal: Denies back pain or joint pain Integument: Denies rash or skin lesions Neurologic: Denies headache, focal weakness or sensory changes Current Medications Current Medications Current Medications Medications (Trade) Dose Ordered Sig/Aleshia Start Time Stop Time Status Last Admin Dose Admin Acetaminophen (Tylenol) 650 mg PRN Q4HRS PRN 09/22/16 12:30 09/23/16 12:29 Acetaminophen/ Hydrocodone Bitart (Lortab 5/325) 1 tab PRN Q6HRS PRN 09/22/16 12:15 Alprazolam (Xanax) 0.5 mg QIDPRN PRN 09/22/16 12:00 Aspirin (Ben Aspirin) 325 mg 1X ONCE 09/22/16 10:00 09/22/16 10:01 DC 09/22/16 10:09 325 MG Fluoxetine HCl (Prozac) 20 mg DAILY 09/23/16 09:00 Morphine Sulfate 2 mg PRN Q2HR PRN 09/22/16 12:30 09/23/16 12:29 Multi-Ingredient Mouthwash/Gargle (Gi Cocktail Single Dose) 15 ml 1X ONCE 09/22/16 10:00 09/22/16 10:01 DC 09/22/16 10:00 15 ML Nitroglycerin (Nitrostat) 0.4 mg PRN Q5MIN PRN 09/22/16 12:30 09/23/16 12:29 Non-Formulary Medication 100 mg BID 09/22/16 21:00 UNV Ondansetron HCl (Zofran) 4 mg PRN Q8HRS PRN 09/22/16 12:30 09/23/16 12:29 Potassium Chloride (KCl Oral Soln) 40 meq 1X ONCE 09/22/16 11:30 09/22/16 11:31 DC 09/22/16 11:30 40 MEQ Potassium Chloride (Klor-Con) 40 meq 1X ONCE 09/22/16 11:00 09/22/16 11:15 DC 09/22/16 11:05 40 MEQ Allergies Allergies Allergies Coded Allergies Type Severity Reaction Last Updated Verified No Known Drug Allergies 08/03/16 No Physical Exam Physical Exam Constitutional: Obese, no acute distress, non-toxic appearance. HENT: Normocephalic, atraumatic, bilateral external ears normal, oropharynx moist, nose normal. Eyes: conjunctiva normal, no discharge. Neck: supple, no stridor. Cardiovascular: RRR, no murmurs, no edema. Lungs & Thorax: LCTAB, no wheezing, no respiratory distress. Reproducible tenderness with palpation over the sternum Abdomen: soft, mild tenderness with palpation in the epigastrium, otherwise nontender, no rebound or guarding, no masses, nondistended. Skin: Warm, dry, no erythema, no rash. Back: No tenderness, no CVA tenderness. Extremities: No tenderness, no edema. No calf tenderness or swelling. Neurologic: Alert and oriented X 3, no focal deficits noted. Psychologic: Anxious Current Patient Data Vital Signs Vital Signs Date Time Temp Pulse Resp B/P Pulse Ox O2 Delivery O2 Flow Rate FiO2 09/22/16 11:32 84 16 129/74 97 Room Air 09/22/16 09:28 98.3 98.3 Lab Values Laboratory Tests Test 09/22/16 10:15 White Blood Count 12.7x10^3/uL (4.0-11.0) #H Red Blood Count 4.77x10^6/uL (3.50-5.40) Hemoglobin 15.3g/dL (12.0-15.5) Hematocrit 44.2% (36.0-47.0) Mean Corpuscular Volume 93fL (79-100) Mean Corpuscular Hemoglobin 32pg (25-35) Mean Corpuscular Hemoglobin Concent 35g/dL (31-37) Red Cell Distribution Width 13.4% (11.5-14.5) Platelet Count 338x10^3/uL (140-400) Neutrophils (%) (Auto) 76% (31-73) H Lymphocytes (%) (Auto) 18% (24-48) L Monocytes (%) (Auto) 6% (0-9) Eosinophils (%) (Auto) 0% (0-3) Basophils (%) (Auto) 1% (0-3) Neutrophils # (Auto) 9.6x10^3uL (1.8-7.7) H Lymphocytes # (Auto) 2.3x10^3/uL (1.0-4.8) Monocytes # (Auto) 0.7x10^3/uL (0.0-1.1) Eosinophils # (Auto) 0.0x10^3/uL (0.0-0.7) Basophils # (Auto) 0.1x10^3/uL (0.0-0.2) Sodium Level 147mmol/L (136-145) H Potassium Level 3.4mmol/L (3.5-5.1) L Chloride Level 106mmol/L (98-107) Carbon Dioxide Level 32mmol/L (21-32) Anion Gap 9 (6-14) Blood Urea Nitrogen 6mg/dL (7-20) L Creatinine 0.6mg/dL (0.6-1.0) Estimated GFR (Cockcroft-Gault) 114.4 BUN/Creatinine Ratio 10 (6-20) Glucose Level 107mg/dL (70-99) H Calcium Level 9.7mg/dL (8.5-10.1) Magnesium Level 2.5mg/dL (1.8-2.4) H Total Bilirubin 0.8mg/dL (0.2-1.0) Aspartate Amino Transferase (AST) 16U/L (15-37) Alanine Aminotransferase (ALT) 40U/L (14-59) Alkaline Phosphatase 66U/L (46-116) Troponin I Quantitative < 0.017ng/mL (0.000-0.055) TJ-Rci-L-Type Natriuretic Peptide 9pg/mL (0-124) Total Protein 7.8g/dL (6.4-8.2) Albumin 3.9g/dL (3.4-5.0) Albumin/Globulin Ratio 1.0 (1.0-1.7) Triglycerides Level 47mg/dL (0-150) Cholesterol Level 155mg/dL (0-200) LDL Cholesterol, Calculated 85mg/dL (0-100) VLDL Cholesterol, Calculated 9mg/dL (0-40) HDL Cholesterol 61mg/dL (40-60) H Cholesterol/HDL Ratio 2.5 Laboratory Tests 09/22/16 10:15 Laboratory Tests 09/22/16 10:15 EKG EKG Interpreted by me: Normal sinus rhythm rate 79, no ST elevation, T waves inverted in leads V1, V2, inverted/biphasic in V3 through V5, AR interval prolonged 268 ms, otherwise normal intervals, no ectopy [] Radiology/Procedures Radiology/Procedures PROCEDURE: CHEST PA & LATERAL EXAM: Chest, 2 views. HISTORY: Chest pain. COMPARISON: 10/27/2007. FINDINGS: Frontal and lateral views of the chest are obtained. There is no infiltrate, effusion or pneumothorax. The heart is normal in size. IMPRESSION: No acute pulmonary finding. DICTATED and SIGNED BY: BOOM CHOI MD DATE: 09/22/16 1051 [] Course & Med Decision Making Course & Med Decision Making Pertinent Labs and Imaging studies reviewed. (See chart for details) Patient presents with chest pain. Administered aspirin upon arrival as well as pain medication and GI cocktail. Pain improved but did not resolve. EKG abnormal as above without STEMI. Troponin negative. PERC negative, no further workup. Pain is atypical but abnormal EKG is concerning. Consulted with Josué Gilman for Dr. Mancuso, recommends admission to the hospital for serial cardiac enzymes and cardiology consultation. Patient agrees with plan of care. Discussed with Dr. López who agrees to admit to inpatient status. Patient admitted in stable condition. [] Dragon Disclaimer Dragon Disclaimer This electronic medical record was generated, in whole or in part, using a voice recognition dictation system. Departure Departure Impression: Primary Impression: Chest pain Additional Impression: Hypokalemia Disposition: ADMITTED INPATIENT Condition: STABLE Problem Qualifiers YOLANDA AVALOS MD Sep 22, 2016 12:45
[2016-09-22] MEDS ORDERED: CYCLOBENZAPRINE 10 MG TABLET. PO PRN (13:30)
[2016-09-22 14:11] VITALS: BP_SYST 113; BP_SYST 118; BP_SYST 122; BP_DIAS 74; BP_DIAS 76; BP_DIAS 78
--- NOTE | 2016-09-22 14:20 | ACF ---
Admission Forms Criteria CARDIOLOGY GRG Clinical Indications for Admission to Inpatient Care ( Place 'X' for any and all applicable criteria): Hospital admission is needed for appropriate care of the patient because of ANY ONE of the following (1): [ ] I. Hemodynamic instability as indicated by ALL of the following (1)(2)(3) (4)(5) [ ]a) Vital signs or other findings not as expected for chronic patient condition or baseline [ ]b) Instability indicated by ANY ONE of the following: [ ]i) Hypotension [ ]ii) Symptomatic Tachycardia unresponsive to treatment ( e.g., analgesia, fluids, sedation as indicated) [ ]iii) Inadequate perfusion indicated by ANY ONE of the following: [ ] 1) Lactic acidosis (> 2 mmol/L) [ ] 2) New abnormal capillary refill (> 3 seconds) [ ] 3) Reduced urine output [ ] 4) New altered mental status [ ]iv) Orthostatic vital sign changes unresponsive to treatment (e.g., fluids) [ ]v) IV inotropic or vasopressor medication required to maintain adequate blood pressure or perfusion [ ] II. Severe heart failure as indicated by ANY ONE of the following(17)(18) [ ]a) Respiratory distress [ ]b) Hypotension [ ]c) Anasarca (refractory to outpatient therapy) [ ]d) Cardiac arrhythmias of immediate concern [ ]e) Myocardial ischemia [ ] III. Cardiac arrhythmias or findings of immediate concern indicated by ANY ONE of the following (19)(20): [ ] a) Heart rhythms that are inherently dangerous or unstable indicated by ANY ONE of the following (21)(22)(23): [ ] i) Resuscitated ventricular fibrillation or cardiac arrest [ ] ii) Ventricular escape rhythm [ ] iii) Sustained ventricular tachycardia (30 seconds or more of ventricular rhythm at greater than 100 beats per minute) [ ] iv) Nonsustained ventricular tachycardia and ANY ONE of the following: [ ] 1) Suspected cardiac ischemia as cause or consequence of ventricular tachycardia [ ] 2) In setting of acute myocarditis [ ] b) Unstable cardiac conduction defects indicated by ANY ONE of the following(23)(24)(25) [ ] i) Type II second-degree atrioventricular block [ ]ii) Third-degree atrioventricular block [ ]iii) New-onset left bundle branch block with suspected myocardial ischemia [ ]c) Any heart rhythm and ANY ONE of the following (21)(22)(26)(27) (28) [ ] i) Continuous long-term ECG monitoring needed (e.g., initiation of drug requiring monitoring for more than 24 hours) [ ] ii) Patient has automatic implanted cardioverter defibrillator that is repeatedly firing, malfunctioning, or in need of immediate adjustment of settings beyond the scope of ambulatory or observation care [ ]d) Heart rhythms of concern due to ANY ONE of the following: [ ] i) Hypotension [ ] ii) Respiratory distress [ ] iii) Association with other significant symptoms (e.g., bradycardia with syncope or ongoing dizziness, supraventricular tachycardia with chest pain (14)(15)(17) [ ] IV. Monitoring for cardiac contusion beyond the scope of observation care needed [A](30)(31)(32) [ ] V. Surgical or device complication (e.g., valve replacement complication , pacemaker dysfunction) (35)(41)(44)(45)(46) [ ] . Inpatient palliative care needed. [B](49) Also use Inpatient Palliative Care Criteria [ ] VII. Nonbacterial thrombotic (marantic) endocarditis (36)(43)(47)(48) [X] VIII. Cardiology condition, symptom, or finding for which emergency and observation care has failed or are not considered appropriate. [ ] IX. Acute valvular disease requiring inpatient as indicated by ANY ONE of the following (41) [ ]a) Acute valvular regurgitation (42) [ ]b) Noninfectious valvulitis (43) [ ]c) Obstructive valve thrombosis [ ]d) Paravalvular leak [ ]e) Other significant valvular disorder remaining after emergency or observation level of care (as appropriate) [ ]X. Pericardial disease requiring inpatient treatment as indicated by ANY ONE of the following (33)(34)(35)(36)(37) [ ]a) Suspected tamponade (38)(39)(40) [ ]b) Hemopericardium [ ]c) Other significant pericardial disorder remaining after emergency or observation level of care (as appropriate) [ ] XI. Cardiac ischemia beyond scope of emergency and observation care. [ ] XII. Hypertension requiring inpatient treatment as indicated by ANY ONE of the following (6)(7)(8) [ ]a) SBP greater than 220 mm Hg or DBP greater than 120 mmHg despite treatment [ ]b) SBP greater than 140 mm Hg or DBP greater than 100 mm Hg with evidence of acute end organ damage as indicated by ANY ONE of the following [ ] i) Encephalopathy [ ] ii) Acute renal failure as indicated by new onset of ANY ONE of the following (9)(10)(11)(12)(13) [ ]1) 3-fold rise in serum creatinine from baseline [ ]2) Serum creatinine greater than 4 mg/dL ( 354 micromoles/L) with acute rise greater than 0.5 mg/dL (44.2 micromoles/L) [ ]3) Reduction of more than 75% in estimated glomerular filtration rate from baseline [ ]4) Estimated glomerular filtration rate less than 35 mL/min/1.73m2 (0.59 mL/sec/1.73m2) in child up to 18 years of age [ ]5) Cessation of urine output indicated by ALL of the following [ ]A. Adequate volume status [ ]B. Inadequate urine output as indicated by ANY ONE of the following [ ]a. Urine output less than 0.3 mL/kg/hr for 24 hours [ ]b. Anuria (urine output less than 0.1 mL/kg/hr) for 12 hours [ ] iii) Aortic dissection [ ] iv) Myocardial Ischemia [ ] v) Left ventricular heart failure [ ]vi) Retinal Hemorrhage [ ]vii) Other significant finding [ ]c) Hypertension in child requiring inpatient treatment as indicated by ALL of the following(14)(15)(16) [ ] i) Outpatient treatment not effective, not available, or not appropriate [ ]ii) SBP or DBP greater than 95th percentile for age [ ]iii) Evidence of acute end organ damage as indicated by ANY ONE of the following [ ]1) Altered mental status [ ]2) Acute renal failure as indicated by new onset of ANY ONE of the following(9)(10)(11)(12)(13) [ ]A. 3-fold rise in serum creatinine from baseline [ ]B. Serum creatinine greater than 4 mg/dL (354 micromoles/L) with acute rise greater than 0.5 mg/dL (44.2 micromoles/L) [ ]C. Reduction of more than 75% in estimated glomerular filtration rate from baseline [ ]D. Estimated glomerular filtration rate less than 35 mL/min/1.73m2 (0.59 mL/sec/1.73m2) in child up to 18 years of age [ ]E. Cessation of urine output indicated by ALL of the following [ ]a. Adequate volume status [ ]b. Inadequate urine output as indicated by ANY ONE of the following [ ]i) Urine output less than 0.3 mL/kg/hr for 24 hours [ ]ii) Anuria ( urine output less than 0.1 mL/kg/hr) for 12 hours [ ]3) Severe headache [ ]4) Visual disturbance [ ]5) Retinal hemorrhage [ ]6) Other significant finding [ ]XIII. Complications of transplanted heart indicated by ANY ONE of the following(61): [ ]a) Acute graft rejection requiring inpatient management (eg, intravenous immunosuppression)(62)(63) [ ]b) Acute graft heart failure indicated by ANY ONE of the following(64): [ ]i) Hemodynamic instability [ ]ii) Cardiac arrhythmias of immediate concern [ ]iii) Pulmonary edema that is very severe (eg, mechanical ventilation needed, imminent or likely, need for 100% oxygen to keep oxygen saturation above 90%) [ ]iv) Pulmonary edema that is persistent as indicated by ALL of the following: [ ]1) New need for oxygen therapy to keep oxygen saturation above 90% (or increased FiO2 need from baseline) [ ]2) Has not improved sufficiently with emergency department or observation care IV diuretics or other heart failure treatments[E] [ ]v) Altered mental status that is severe or persistent [ ]vi) Increased creatinine (new on laboratory test) with reduction of more than 50% in estimated glomerular filtration rate from baseline [ ]vii) Progressively (ongoing) rising creatinine (known from past laboratory test) with reduction of more than 25% in estimated glomerular filtration rate from baseline [ ]viii) Acute renal failure [ ]ix) Acute peripheral ischemia (eg, examination shows pulseless, cool, mottled, or cyanotic extremity) [ ]x) Pulmonary artery catheter monitoring needed [ ]xi) Other sign or symptom of heart failure requiring inpatient treatment (ie, too severe or not responsive to outpatient and observation care treatment) [ ]c) Infection requiring inpatient management (eg, Hemodynamic instability, need for intravenous antimicrobial treatment)(66)(67)(68)(69)(70) [ ]d) Cardiac allograft vasculopathy requiring inpatient management ( eg evidence of cardiac ischemia)(71) [ ]e) Other complication of transplanted heart (eg, stroke, severe pulmonary hypertension, severe valvular dysfunction) requiring inpatient management(72) The original [facility] content created by [facility] has been revised. The portions of the content which have been revised are identified through the use of italic text or in bold, and [facility] has neither reviewed nor approved the modified material. All other unmodified content is copyright [facility]. Please see references footnoted in the original [facility] edition 2016 Admission Criteria Met?: Yes BALTAZAR ZARAGOZA Sep 22, 2016 14:20
--- NOTE | 2016-09-22 14:57 | PDOC2 ---
GI CONSULT Reason For Consult: Abd pain HPI: HPI: 36 y/o female admitted through the ER w/ atypical chest pain and presyncope. Cardiology saw for midsternal pressure/squeezing. Labs and CXR unrevealing. Echocardiogram pending. Note previous ER visits in 07/2016 for GERD and 08/2016 for GONZALES, epigastric pain, and reflux. She has a h/o GERD w/ previous EGD by Dr. Dias in 2002 showing hiatal hernia and gastritis. Random distal esophageal biopsies showed mild chronic esophagitis and were negative for Gill's. Her , Brody, does most of the talking. Heartburn and reflux was improved w/ previous use of Nexium which she stopped 1-2 years ago; however, she restarted a PPI (Prilosec QD 30 min before breakfast) in 06/2016 (I believe per the advice of her PCP). Liquid antacids previously helped reflux symptoms but are no longer as effective. Despite restarting PPI, she has frequent nocturnal reflux, chest discomfort, post-prandial bloating, and some vague/intermittent abd pain. Symptoms might be worse after eating; she has not been eating as much and estimates she has lost 40 pounds in 2 weeks. She admits to occasional nausea w/o vomiting which mostly occurs in the middle of the night. She denies hematochezia and melena but might have some constipation (untreated); she last had a small stool yesterday. She takes Tylenol for headaches but also uses ibuprofen about 1-2 times weekly. 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 FH: Family History: No pertinent hx (denies GI cancers) Social History: Smoke: No ALCOHOL: none Drugs: None ROS: GEN: Denies fevers, chills, sweats HEENT: +sinus congestion CV: +chest pain RESP: +SOA GI: Per HPI : Denies hematuria, dysuria ENDO: +weight loss NEURO: +lightheadedness +GONZALES MSK: Denies weakness, joint pain/swelling SKIN: Denies jaundice, pruritus VItals: Vitals: Vital Signs Date Time Temp Pulse Resp B/P Pulse Ox O2 Delivery O2 Flow Rate FiO2 09/22/16 14:11 98.8 66 18 118/76 95 Room Air 98.8 Labs: Labs: Laboratory Tests Test 09/22/16 10:15 White Blood Count 12.7x10^3/uL (4.0-11.0) Red Blood Count 4.77x10^6/uL (3.50-5.40) Hemoglobin 15.3g/dL (12.0-15.5) Hematocrit 44.2% (36.0-47.0) Mean Corpuscular Volume 93fL (79-100) Mean Corpuscular Hemoglobin 32pg (25-35) Mean Corpuscular Hemoglobin Concent 35g/dL (31-37) Red Cell Distribution Width 13.4% (11.5-14.5) Platelet Count 338x10^3/uL (140-400) Neutrophils (%) (Auto) 76% (31-73) Lymphocytes (%) (Auto) 18% (24-48) Monocytes (%) (Auto) 6% (0-9) Eosinophils (%) (Auto) 0% (0-3) Basophils (%) (Auto) 1% (0-3) Neutrophils # (Auto) 9.6x10^3uL (1.8-7.7) Lymphocytes # (Auto) 2.3x10^3/uL (1.0-4.8) Monocytes # (Auto) 0.7x10^3/uL (0.0-1.1) Eosinophils # (Auto) 0.0x10^3/uL (0.0-0.7) Basophils # (Auto) 0.1x10^3/uL (0.0-0.2) Sodium Level 147mmol/L (136-145) Potassium Level 3.4mmol/L (3.5-5.1) Chloride Level 106mmol/L (98-107) Carbon Dioxide Level 32mmol/L (21-32) Anion Gap 9 (6-14) Blood Urea Nitrogen 6mg/dL (7-20) Creatinine 0.6mg/dL (0.6-1.0) Estimated GFR (Cockcroft-Gault) 114.4 BUN/Creatinine Ratio 10 (6-20) Glucose Level 107mg/dL (70-99) Calcium Level 9.7mg/dL (8.5-10.1) Magnesium Level 2.5mg/dL (1.8-2.4) Total Bilirubin 0.8mg/dL (0.2-1.0) Aspartate Amino Transf (AST/SGOT) 16U/L (15-37) Alanine Aminotransferase (ALT/SGPT) 40U/L (14-59) Alkaline Phosphatase 66U/L (46-116) Troponin I Quantitative < 0.017ng/mL (0.000-0.055) JY-Kfl-G-Type Natriuretic Peptide 9pg/mL (0-124) Total Protein 7.8g/dL (6.4-8.2) Albumin 3.9g/dL (3.4-5.0) Albumin/Globulin Ratio 1.0 (1.0-1.7) Triglycerides Level 47mg/dL (0-150) Cholesterol Level 155mg/dL (0-200) LDL Cholesterol, Calculated 85mg/dL (0-100) VLDL Cholesterol, Calculated 9mg/dL (0-40) HDL Cholesterol 61mg/dL (40-60) Cholesterol/HDL Ratio 2.5 Thyroid Stimulating Hormone (TSH) 0.434uIU/mL (0.358-3.74) Allergies: Coded Allergies: No Known Drug Allergies (Unverified , 08/03/16) Medications: Current Medications Medications (Trade) Dose Ordered Sig/Aleshia Route PRN Reason Start Time Stop Time Status Last Admin Dose Admin Aspirin (Ben Aspirin) 325 mg 1X ONCE PO 09/22/16 10:00 09/22/16 10:01 DC 09/22/16 10:09 Ondansetron HCl (Zofran) 4 mg 1X ONCE IV 09/22/16 10:00 09/22/16 10:01 DC 09/22/16 10:12 Multi-Ingredient Mouthwash/Gargle (Gi Cocktail Single Dose) 15 ml 1X ONCE SWSW 09/22/16 10:00 09/22/16 10:01 DC 09/22/16 10:00 Potassium Chloride (Klor-Con) 40 meq 1X ONCE PO 09/22/16 11:00 09/22/16 11:15 DC 09/22/16 11:05 Potassium Chloride (KCl Oral Soln) 40 meq 1X ONCE PO 09/22/16 11:30 09/22/16 11:31 DC 09/22/16 11:30 Imaging: Imaging: Abd US 08/03/16 FINDINGS The liver is normal in size. No focal hepatic lesion is seen. There is hepatic steatosis. The gallbladder and common bile duct are unremarkable. The kidneys, spleen, aorta and inferior vena cava are unremarkable. The pancreatic tail is obscured due to bowel gas. IMPRESSION 1. Hepatic steatosis. 2. Obscured pancreatic tail due to bowel gas. 3. Otherwise, unremarkable abdomen sonogram. CXR 09/22/16 IMPRESSION: No acute pulmonary finding. Echocardiogram 09/22/16 PENDING PE: GEN: NAD HEENT: Atraumatic, PERRL LUNGS: CTAB HEART: RRR, chest wall some TTP ABD: NABS, S/ND, some RUQ pain to epigastrium, additionally LLQ discomfort EXTREMITY: No edema SKIN: No rashes, no jaundice NEURO/PSYCH: A & O 3 A/P: A/P: Atypical chest pain, presyncope -cardiology following, echocardiogram pending GERD, abd pain, weight loss -long h/o GERD w/ previous EGD in 2002 (microscopic reflux, gastritis, hiatal hernia) -previously responded well to PPI, has been off for a couple years and recently restarted -frequent nocturnal reflux, some nausea, post-prandial bloating, occasional abd pain -estimates 40 lb weight loss in 2 weeks -abd US in 07/2016 neg for cholecystitis/cholelithiasis -- Will add PPI QD, GI cocktail PRN, and Miralax PRN. Reviewed w/ Dr. Vargas - w/ significant weight loss, will check additional labs (LAKIA, Hep panel, HIV). Will also order chest CT. ALANIS BUTT Sep 22, 2016 14:57
[2016-09-22] MEDS ORDERED: LIDO:MAALOX:DONNATAL 1:1:1 15 ML SINGLE DOSE SWSW PRN (15:00)
--- NOTE | 2016-09-22 15:19 | CARD ---
APPROVED REPORT EXAM: Two-dimensional and M-mode echocardiogram with Doppler and color Doppler. Other Information Quality : Average Rhythm : NSR INDICATION Chest Pain 2D DIMENSIONS RVDd2.7 (2.9-3.5cm)Left Atrium(2D)3.1 (1.6-4.0cm) IVSd1.2 (0.7-1.1cm)Aortic Root(2D)2.6 (2.0-3.7cm) LVDd4.5 (3.9-5.9cm)LVOT Diameter2.0 (1.8-2.4cm) PWd1.2 (0.7-1.1cm)LVDs3.3 (2.5-4.0cm) FS (%) 26.2 %SV47.6 ml LVEF(%)51.5 (>50%) Aortic Valve AoV Peak Michael.152.0cm/sAoV VTI25.5cm AO Peak GR.9.2mmHgLVOT Peak Micahel.131.4cm/s LVOT VTI 22.15cmAO Mean GR.5mmHg PAZ (VMAX)2.64vo2XIG (VTI)2.72cm2 Mitral Valve MV E Hvcdvyfp21.6cm/sMV DECEL PVUG870iu MV A Ekzarido25.2cm/sMV E Mean Gr.1mmHg MV AKR64nqG/A Ratio1.4 MV A Wyfqaere202rnFAB (PHT)3.63cm2 TDI E/Lateral E'4.5E/Medial E'7.8 Pulmonary Valve PV Peak Qdwzpdut902.1cm/sPV Peak Grad.5mmHg RVOT VTI21.8cm Tricuspid Valve TR P. Hmzdhkyq939qg/sRAP CWXNSBRC8krJf TR Peak Gr.22kzWiXQHX05nvWd Pulmonary Vein S1 Zfviftho44.0cm/sD2 Gscrizhm08.4cm/s LEFT VENTRICLE The left ventricle is normal size. There is borderline concentric left ventricular hypertrophy. Left ventricle systolic function is normal. The Ejection Fraction is 55%. There is normal LV segmental wal l motion. The left ventricular diastolic function and filling is normal for age. RIGHT VENTRICLE The right ventricle is normal size. The right ventricular systolic function is normal. ATRIA The left atrium size is normal. The right atrium size is normal. The interatrial septum is intact wit h no evidence for an atrial septal defect or patent foramen ovale as noted on 2-D or Doppler imaging. AORTIC VALVE The aortic valve is normal in structure and function. The aortic valve is trileaflet. Doppler and Col or Flow revealed no significant aortic regurgitation. There is no significant aortic valvular stenosi s. MITRAL VALVE The mitral valve is normal in structure and function. There is no mitral valve stenosis. Doppler and Color Flow revealed no mitral valve regurgitation noted. TRICUSPID VALVE The tricuspid valve is normal in structure and function. Doppler and Color Flow revealed mild tricusp id regurgitation. The PA pressure was estimated at 35 mmHg. There is no tricuspid valve stenosis. PULMONIC VALVE The pulmonic valve is not well visualized. Doppler and Color Flow revealed trace pulmonic valvular re gurgitation. There is no pulmonic valvular stenosis. GREAT VESSELS The aortic root is normal in size. Normal pulmonary venous flow (Doppler). The IVC is normal in size and collapses >50% with inspiration. PERICARDIAL EFFUSION There is no evidence of significant pericardial effusion. Critical Notification Critical Value: No <Conclusion> Left ventricle systolic function is normal. The Ejection Fraction is 55%. There is normal LV segmental wall motion. Doppler and Color Flow revealed mild tricuspid regurgitation. The PA pressure was estimated at 35 mmHg. There is no evidence of significant pericardial effusion.
[2016-09-22] MEDS ORDERED: ACET325T9 PO (16:14)
[2016-09-22] MEDS ORDERED: OMEP20CA9 PO (16:14)
[2016-09-22] MEDS ORDERED: FLUT9.9S NS (16:14)
[2016-09-22] MEDS ORDERED: OXYM30SP NS (16:14)
--- NOTE | 2016-09-22 16:47 | RAD ---
EXAM: Chest CT without intravenous contrast. HISTORY: Pain and weight loss. TECHNIQUE: Computed tomographic images of the chest were obtained without contrast. Multiplanar reformatting was performed. COMPARISON: None. FINDINGS: There is no infiltrate, effusion or pneumothorax. No suspicious pulmonary nodule is seen. There is a calcified granuloma within the left lower lobe. The heart is normal in size. No pathologically enlarged lymph node is seen. There is suggestion of hepatic steatosis. There is suspected focal fatty infiltration along the falciform ligament. The gallbladder, spleen, adrenal glands and visualized portions of the kidneys are unremarkable. The pancreas is unremarkable on this noncontrast exam. No suspicious osseous lesion is seen. IMPRESSION: No acute thoracic finding. PQRS Compliance Statement: One or more of the following individualized dose reduction techniques were utilized for this examination: 1. Automated exposure control 2. Adjustment of the mA and/or kV according to patient size 3. Use of iterative reconstruction technique
[2016-09-22] MEDS: HYDROCODONE/APAP 5/325MG TABLET. PO PRN (17:13)
[2016-09-22 19:00] VITALS: BP 108/75
[2016-09-22] MEDS ORDERED: NON FORMULARY ITEM (Orphenadrine Citrate 100 MG) PO SCH (21:00)
[2016-09-22 22:50] VITALS: BP 113/71
[2016-09-23] VITALS (10 sets, daily range): BP systolic 101–132; BP diastolic 64–83
[2016-09-23] MEDS: ALPRAZOLAM 0.5 MG TABLET. PO PRN ×2 (03:18→22:03)
[2016-09-23] MEDS: PANTOPRAZOLE 40 MG TABLET. PO SCH (08:21)
[2016-09-23] MEDS: FLUOXETINE HCL 20 MG CAPSULE PO SCH (08:21)
--- NOTE | 2016-09-23 09:59 | PDOC ---
CARDIO Progress Notes Date and Time Date of Service 09/23/2016 Time of Evaluation 0930 Subjective Subjective: No Chest Pain, No shortness of breath, No Palpitations, No Dizziness, Other (complains of mild left mid abdominal pain) Vitals Vitals Vital Signs Date Time Temp Pulse Resp B/P Pulse Ox O2 Delivery O2 Flow Rate FiO2 09/23/16 07:17 64 132/73 09/23/16 07:17 97.5 18 96 Room Air 97.5 Weight Weight [ ] Input and Output Intake and Output Intake and Output 09/23/16 07:00 Intake Total 1200 ml Balance 1200 ml Intake Oral 1200 ml # Voids 5 Laboratory Labs Laboratory Tests Test 09/22/16 10:15 09/22/16 18:30 09/23/16 00:35 White Blood Count 12.7x10^3/uL (4.0-11.0) Red Blood Count 4.77x10^6/uL (3.50-5.40) Hemoglobin 15.3g/dL (12.0-15.5) Hematocrit 44.2% (36.0-47.0) Mean Corpuscular Volume 93fL (79-100) Mean Corpuscular Hemoglobin 32pg (25-35) Mean Corpuscular Hemoglobin Concent 35g/dL (31-37) Red Cell Distribution Width 13.4% (11.5-14.5) Platelet Count 338x10^3/uL (140-400) Neutrophils (%) (Auto) 76% (31-73) Lymphocytes (%) (Auto) 18% (24-48) Monocytes (%) (Auto) 6% (0-9) Eosinophils (%) (Auto) 0% (0-3) Basophils (%) (Auto) 1% (0-3) Neutrophils # (Auto) 9.6x10^3uL (1.8-7.7) Lymphocytes # (Auto) 2.3x10^3/uL (1.0-4.8) Monocytes # (Auto) 0.7x10^3/uL (0.0-1.1) Eosinophils # (Auto) 0.0x10^3/uL (0.0-0.7) Basophils # (Auto) 0.1x10^3/uL (0.0-0.2) Sodium Level 147mmol/L (136-145) Potassium Level 3.4mmol/L (3.5-5.1) Chloride Level 106mmol/L (98-107) Carbon Dioxide Level 32mmol/L (21-32) Anion Gap 9 (6-14) Blood Urea Nitrogen 6mg/dL (7-20) Creatinine 0.6mg/dL (0.6-1.0) Estimated GFR (Cockcroft-Gault) 114.4 BUN/Creatinine Ratio 10 (6-20) Glucose Level 107mg/dL (70-99) Calcium Level 9.7mg/dL (8.5-10.1) Magnesium Level 2.5mg/dL (1.8-2.4) Total Bilirubin 0.8mg/dL (0.2-1.0) Aspartate Amino Transf (AST/SGOT) 16U/L (15-37) Alanine Aminotransferase (ALT/SGPT) 40U/L (14-59) Alkaline Phosphatase 66U/L (46-116) Troponin I Quantitative < 0.017ng/mL (0.000-0.055) < 0.017ng/mL (0.000-0.055) < 0.017ng/mL (0.000-0.055) TK-Lxd-U-Type Natriuretic Peptide 9pg/mL (0-124) Total Protein 7.8g/dL (6.4-8.2) Albumin 3.9g/dL (3.4-5.0) Albumin/Globulin Ratio 1.0 (1.0-1.7) Triglycerides Level 47mg/dL (0-150) Cholesterol Level 155mg/dL (0-200) LDL Cholesterol, Calculated 85mg/dL (0-100) VLDL Cholesterol, Calculated 9mg/dL (0-40) HDL Cholesterol 61mg/dL (40-60) Cholesterol/HDL Ratio 2.5 Thyroid Stimulating Hormone (TSH) 0.434uIU/mL (0.358-3.74) Physical Exam HEENT: Neck Supple W Full Motion Chest: Symmetric LUNGS: Clear to Auscultation Heart: S1S2, RRR (No significant ectopies overnight), murmurs (2/6 systolic murmur to LLS border) Abdomen: Soft N/T Extremities: No Edema, No Calf Tenderness Neurology: alert, oriented, follow commands Assessment Assessment 1. Atypical chest pain: None further overnight unless chest palpated. Suspect MSK with GI component, noncardiac. 2. Abnormal EKG: precordial very mild T wave inversions nonspecific which is likely from LVH 3. Presyncope: related to inadequate po hydration. No orthostasis 4. Possible generalized anxiety disorder: hx of past depression. defer to PCP 5. Abdominal pain with GERD with hiatal hernia: GI following 6. Hypokalemia 7. Obesity 8. Hx of gestational DM: last noted 2011. Used to be on metformin and then diet controlled. Recommendation 1. TTE with normal wall motion/EF. No further cardiac testing warranted 2. Discussed hydration adequacy and lifestyle modification 3. KIMBERLY Corbett APRN Sep 23, 2016 09:59
--- NOTE | 2016-09-23 10:00 | PDOC ---
PROGRESS NOTES Chief Complaint Chief Complaint CC: chest pain A/P Epigastric pain : ACS ruled out, Echo normal EF, troponins normal, ? gall bladder disease, HIDA Ordered, GI following, Severe anxiety Pre syncope: orthostasis negative. Plan HIDA scan PRN XANX GI and cardiology following. Protonix History of Present Illness History of Present Illness no chest pain no fever no chills. Vitals Vitals Vital Signs Date Time Temp Pulse Resp B/P Pulse Ox O2 Delivery O2 Flow Rate FiO2 09/23/16 07:17 64 132/73 09/23/16 07:17 97.5 18 96 Room Air 97.5 Physical Exam General: Alert, Oriented X3, Cooperative, No acute distress Heart: Regular rate, Normal S1, Normal S2, No murmurs Lungs: Clear Abdomen: Soft, No tenderness Extremities: No cyanosis, No edema Skin: No breakdown, No significant lesion Labs LABS Laboratory Tests Test 09/22/16 10:15 09/22/16 18:30 09/23/16 00:35 White Blood Count 12.7x10^3/uL (4.0-11.0) Red Blood Count 4.77x10^6/uL (3.50-5.40) Hemoglobin 15.3g/dL (12.0-15.5) Hematocrit 44.2% (36.0-47.0) Mean Corpuscular Volume 93fL (79-100) Mean Corpuscular Hemoglobin 32pg (25-35) Mean Corpuscular Hemoglobin Concent 35g/dL (31-37) Red Cell Distribution Width 13.4% (11.5-14.5) Platelet Count 338x10^3/uL (140-400) Neutrophils (%) (Auto) 76% (31-73) Lymphocytes (%) (Auto) 18% (24-48) Monocytes (%) (Auto) 6% (0-9) Eosinophils (%) (Auto) 0% (0-3) Basophils (%) (Auto) 1% (0-3) Neutrophils # (Auto) 9.6x10^3uL (1.8-7.7) Lymphocytes # (Auto) 2.3x10^3/uL (1.0-4.8) Monocytes # (Auto) 0.7x10^3/uL (0.0-1.1) Eosinophils # (Auto) 0.0x10^3/uL (0.0-0.7) Basophils # (Auto) 0.1x10^3/uL (0.0-0.2) Sodium Level 147mmol/L (136-145) Potassium Level 3.4mmol/L (3.5-5.1) Chloride Level 106mmol/L (98-107) Carbon Dioxide Level 32mmol/L (21-32) Anion Gap 9 (6-14) Blood Urea Nitrogen 6mg/dL (7-20) Creatinine 0.6mg/dL (0.6-1.0) Estimated GFR (Cockcroft-Gault) 114.4 BUN/Creatinine Ratio 10 (6-20) Glucose Level 107mg/dL (70-99) Calcium Level 9.7mg/dL (8.5-10.1) Magnesium Level 2.5mg/dL (1.8-2.4) Total Bilirubin 0.8mg/dL (0.2-1.0) Aspartate Amino Transf (AST/SGOT) 16U/L (15-37) Alanine Aminotransferase (ALT/SGPT) 40U/L (14-59) Alkaline Phosphatase 66U/L (46-116) Troponin I Quantitative < 0.017ng/mL (0.000-0.055) < 0.017ng/mL (0.000-0.055) < 0.017ng/mL (0.000-0.055) UQ-Fhh-S-Type Natriuretic Peptide 9pg/mL (0-124) Total Protein 7.8g/dL (6.4-8.2) Albumin 3.9g/dL (3.4-5.0) Albumin/Globulin Ratio 1.0 (1.0-1.7) Triglycerides Level 47mg/dL (0-150) Cholesterol Level 155mg/dL (0-200) LDL Cholesterol, Calculated 85mg/dL (0-100) VLDL Cholesterol, Calculated 9mg/dL (0-40) HDL Cholesterol 61mg/dL (40-60) Cholesterol/HDL Ratio 2.5 Thyroid Stimulating Hormone (TSH) 0.434uIU/mL (0.358-3.74) Assessment and Plan Assessmemt and Plan Problems Medical Problems: (1) Chest pain Status: Acute (2) Hypokalemia Status: Acute Problems: Comment Review of Relevant I have reviewed the following items socorro (where applicable) has been applied. Labs Laboratory Tests Test 09/22/16 10:15 09/22/16 18:30 09/23/16 00:35 White Blood Count 12.7x10^3/uL (4.0-11.0) Red Blood Count 4.77x10^6/uL (3.50-5.40) Hemoglobin 15.3g/dL (12.0-15.5) Hematocrit 44.2% (36.0-47.0) Mean Corpuscular Volume 93fL (79-100) Mean Corpuscular Hemoglobin 32pg (25-35) Mean Corpuscular Hemoglobin Concent 35g/dL (31-37) Red Cell Distribution Width 13.4% (11.5-14.5) Platelet Count 338x10^3/uL (140-400) Neutrophils (%) (Auto) 76% (31-73) Lymphocytes (%) (Auto) 18% (24-48) Monocytes (%) (Auto) 6% (0-9) Eosinophils (%) (Auto) 0% (0-3) Basophils (%) (Auto) 1% (0-3) Neutrophils # (Auto) 9.6x10^3uL (1.8-7.7) Lymphocytes # (Auto) 2.3x10^3/uL (1.0-4.8) Monocytes # (Auto) 0.7x10^3/uL (0.0-1.1) Eosinophils # (Auto) 0.0x10^3/uL (0.0-0.7) Basophils # (Auto) 0.1x10^3/uL (0.0-0.2) Sodium Level 147mmol/L (136-145) Potassium Level 3.4mmol/L (3.5-5.1) Chloride Level 106mmol/L (98-107) Carbon Dioxide Level 32mmol/L (21-32) Anion Gap 9 (6-14) Blood Urea Nitrogen 6mg/dL (7-20) Creatinine 0.6mg/dL (0.6-1.0) Estimated GFR (Cockcroft-Gault) 114.4 BUN/Creatinine Ratio 10 (6-20) Glucose Level 107mg/dL (70-99) Calcium Level 9.7mg/dL (8.5-10.1) Magnesium Level 2.5mg/dL (1.8-2.4) Total Bilirubin 0.8mg/dL (0.2-1.0) Aspartate Amino Transf (AST/SGOT) 16U/L (15-37) Alanine Aminotransferase (ALT/SGPT) 40U/L (14-59) Alkaline Phosphatase 66U/L (46-116) Troponin I Quantitative < 0.017ng/mL (0.000-0.055) < 0.017ng/mL (0.000-0.055) < 0.017ng/mL (0.000-0.055) BJ-Nps-K-Type Natriuretic Peptide 9pg/mL (0-124) Total Protein 7.8g/dL (6.4-8.2) Albumin 3.9g/dL (3.4-5.0) Albumin/Globulin Ratio 1.0 (1.0-1.7) Triglycerides Level 47mg/dL (0-150) Cholesterol Level 155mg/dL (0-200) LDL Cholesterol, Calculated 85mg/dL (0-100) VLDL Cholesterol, Calculated 9mg/dL (0-40) HDL Cholesterol 61mg/dL (40-60) Cholesterol/HDL Ratio 2.5 Thyroid Stimulating Hormone (TSH) 0.434uIU/mL (0.358-3.74) Laboratory Tests Test 09/22/16 10:15 09/22/16 18:30 09/23/16 00:35 White Blood Count 12.7x10^3/uL (4.0-11.0) Red Blood Count 4.77x10^6/uL (3.50-5.40) Hemoglobin 15.3g/dL (12.0-15.5) Hematocrit 44.2% (36.0-47.0) Mean Corpuscular Volume 93fL (79-100) Mean Corpuscular Hemoglobin 32pg (25-35) Mean Corpuscular Hemoglobin Concent 35g/dL (31-37) Red Cell Distribution Width 13.4% (11.5-14.5) Platelet Count 338x10^3/uL (140-400) Neutrophils (%) (Auto) 76% (31-73) Lymphocytes (%) (Auto) 18% (24-48) Monocytes (%) (Auto) 6% (0-9) Eosinophils (%) (Auto) 0% (0-3) Basophils (%) (Auto) 1% (0-3) Neutrophils # (Auto) 9.6x10^3uL (1.8-7.7) Lymphocytes # (Auto) 2.3x10^3/uL (1.0-4.8) Monocytes # (Auto) 0.7x10^3/uL (0.0-1.1) Eosinophils # (Auto) 0.0x10^3/uL (0.0-0.7) Basophils # (Auto) 0.1x10^3/uL (0.0-0.2) Sodium Level 147mmol/L (136-145) Potassium Level 3.4mmol/L (3.5-5.1) Chloride Level 106mmol/L (98-107) Carbon Dioxide Level 32mmol/L (21-32) Anion Gap 9 (6-14) Blood Urea Nitrogen 6mg/dL (7-20) Creatinine 0.6mg/dL (0.6-1.0) Estimated GFR (Cockcroft-Gault) 114.4 BUN/Creatinine Ratio 10 (6-20) Glucose Level 107mg/dL (70-99) Calcium Level 9.7mg/dL (8.5-10.1) Magnesium Level 2.5mg/dL (1.8-2.4) Total Bilirubin 0.8mg/dL (0.2-1.0) Aspartate Amino Transf (AST/SGOT) 16U/L (15-37) Alanine Aminotransferase (ALT/SGPT) 40U/L (14-59) Alkaline Phosphatase 66U/L (46-116) Troponin I Quantitative < 0.017ng/mL (0.000-0.055) < 0.017ng/mL (0.000-0.055) < 0.017ng/mL (0.000-0.055) [place]-Cjn-H-Type Natriuretic Peptide 9pg/mL (0-124) Total Protein 7.8g/dL (6.4-8.2) Albumin 3.9g/dL (3.4-5.0) Albumin/Globulin Ratio 1.0 (1.0-1.7) Triglycerides Level 47mg/dL (0-150) Cholesterol Level 155mg/dL (0-200) LDL Cholesterol, Calculated 85mg/dL (0-100) VLDL Cholesterol, Calculated 9mg/dL (0-40) HDL Cholesterol 61mg/dL (40-60) Cholesterol/HDL Ratio 2.5 Thyroid Stimulating Hormone (TSH) 0.434uIU/mL (0.358-3.74) Medications Current Medications Aspirin (Ben Aspirin) 325 mg 1X ONCE PO Last administered on 09/22/16 10:09 ; Start 09/22/16 at 10:00; Stop 09/22/16 at 10:01; Status DC Ondansetron HCl (Zofran) 4 mg 1X ONCE IV Last administered on 09/22/16 10:12 ; Start 09/22/16 at 10:00; Stop 09/22/16 at 10:01; Status DC Multi-Ingredient Mouthwash/Gargle (Gi Cocktail Single Dose) 15 ml 1X ONCE SWSW Last administered on 09/22/16 10:00; Start 09/22/16 at 10:00; Stop 09/22/16 at 10:01; Status DC Morphine Sulfate 4 mg PRN Q15MIN PRN IV/SQ PAIN GREATER THAN 3/10; Start at 10:00; Stop 09/23/16 at 09:59; Status DC Potassium Chloride (Klor-Con) 40 meq 1X ONCE PO Last administered on 11:05; Start 09/22/16 at 11:00; Stop 09/22/16 at 11:15; Status DC Potassium Chloride (KCl Oral Soln) 40 meq 1X ONCE PO Last administered on 09/22 11:30; Start 09/22/16 at 11:30; Stop 09/22/16 at 11:31; Status DC Fluoxetine HCl (Prozac) 20 mg DAILY PO Last administered on 09/23/16 08:21; Start 09/23/16 at 09:00 Alprazolam (Xanax) 0.5 mg QIDPRN PRN PO ANXIETY Last administered on 09/23/16 03:18; Start 09/22/16 at 12:00 Acetaminophen/ Hydrocodone Bitart (Lortab 5/325) 1 tab PRN Q6HRS PRN PO PAIN Last administered on 09/22/16 17:13; Start 09/22/16 at 12:15 Non-Formulary Medication 100 mg BID PO ; Start 09/22/16 at 21:00; Status UNV Ondansetron HCl (Zofran) 4 mg PRN Q8HRS PRN IV NAUSEA/VOMITING; Start 09/22/16 at 12:30; Stop 09/23/16 at 12:29 Morphine Sulfate 2 mg PRN Q2HR PRN IV PAIN; Start 09/22/16 at 12:30; Stop 09/23 at 12:29 Acetaminophen (Tylenol) 650 mg PRN Q4HRS PRN PO FEVER; Start 09/22/16 at 12:30 ; Stop 09/23/16 at 12:29 Nitroglycerin (Nitrostat) 0.4 mg PRN Q5MIN PRN SL CHEST PAIN; Start 09/22/16 at 12:30; Stop 09/23/16 at 12:29 Cyclobenzaprine HCl (Flexeril) 10 mg PRN Q6HRS PRN PO MUSCLE SPASMS; Start at 13:30 Pantoprazole Sodium (Protonix) 40 mg DAILYAC PO Last administered on 09/23/16 08:21; Start 09/23/16 at 07:30 Multi-Ingredient Mouthwash/Gargle (Gi Cocktail Single Dose) 15 ml PRN 1X PRN SWSW CHEST PAIN Last administered on 09/22/16 22:03; Start 09/22/16 at 15:00 Polyethylene Glycol (miraLAX PACKET) 17 gm PRN DAILY PRN PO CONSTIPATION; Start 09/22/16 at 15:00 Active Scripts Active Orphenadrine Citrate 100 Mg Tablet.er 100 Mg PO BID [place] 5-325 Tablet (Acetaminophen/Hydrocodone Bitart) 1 Each Tablet 1 Tab PO PRN Q6HRS PRN Reported Tylenol (Acetaminophen) 325 Mg Tablet 650 Mg PO PRN Flonase Allergy Relief (Fluticasone Propionate) 9.9 Ml [place].susp 2 Sprays NS DAILY Afrin (Oxymetazoline Hcl) 30 Ml [place] 30 Ml NS TID PRN PRN Omeprazole 20 Mg Capsule.dr 1 Cap PO DAILY Vitals/I & O Vital Sign - Last 24 Hours 09/22/16 09/22/16 09/22/16 09/22/16 10:10 10:40 11:10 11:32 Pulse 71 72 86 84 Resp 16 B/P 131/66 118/74 126/72 129/74 Pulse Ox 97 96 97 97 O2 Delivery Room Air Room Air Room Air Room Air 09/22/16 09/22/16 09/22/16 09/22/16 12:00 12:30 13:09 14:11 Pulse 80 78 76 71 Resp 18 B/P 122/76 109/66 120/70 113/78 Pulse Ox 96 96 95 O2 Delivery Room Air Room Air Room Air 09/22/16 09/22/16 09/22/16 09/22/16 14:11 14:11 17:13 18:13 Temp 98.8 98.8 Pulse 79 66 Resp 18 B/P 122/74 118/76 Pulse Ox 95 O2 Delivery Room Air Room Air Room Air 09/22/16 09/22/16 09/22/16 09/23/16 19:00 20:17 22:50 03:00 Temp 97.9 98.1 98.4 97.9 98.1 98.4 Pulse 77 76 73 Resp 18 B/P 108/75 113/71 104/64 Pulse Ox 96 96 97 O2 Delivery Room Air Room Air Room Air Room Air 09/23/16 09/23/16 09/23/16 07:17 07:17 07:17 Temp 97.5 97.5 Pulse 80 70 64 Resp 18 B/P 113/74 107/65 132/73 Pulse Ox 96 O2 Delivery Room Air Intake and Output 09/22/16 09/22/16 09/23/16 15:00 23:00 07:00 Intake Total 840 ml 360 ml Balance 840 ml 360 ml KRISHNA JEFFERSON MD Sep 23, 2016 10:00
--- NOTE | 2016-09-23 10:05 | EKG ---
[facility] [address] [place] [address] Test Date: 2016-09-23 Test Time: 09:53:21 Pat Name: PEMA FISHER Department: Room: 526 1 Gender: F Lube Man: LISETTE : 1980 Requested By: KIMBERLY DOYLE Order Number: [id number] Reading MD: Compa Elkins Measurements Intervals [place] Rate: 85 P: 54 IL: 162 QRS: -23 QRSD: 84 T: 17 QT: 356 QTc: 429 Interpretive Statements SINUS RHYTHM Electronically Signed On 09-28-2016 17:00:50 CDT by Copma Elkins
[2016-09-23 10:28] LABS: CALCIUM 9.1 mg/dL (8.5-10.1); CREATININE 0.8 mg/dL (0.6-1.0); GFR 82.1; MAGNESIUM 2.1 mg/dL (1.8-2.4); POTASSIUM 3.4 mmol/L (3.5-5.1)
[2016-09-23] MEDS ORDERED: POTASSIUM CHLORIDE 20 MEQ TABLET.ER. PO ONE (11:00)
[2016-09-23 13:25] LABS: HEP A IGM ABDY Negative (Negative)
--- NOTE | 2016-09-23 13:43 | PDOC ---
Subjective: Subjective: Mid abd cramping after lunch. No BM. No heartburn today. No chest pain. Objective: Vital Signs: Vital Signs Date Time Temp Pulse Resp B/P Pulse Ox O2 Delivery O2 Flow Rate FiO2 09/23/16 10:24 99 118/83 09/23/16 10:14 97.7 18 96 Room Air 97.7 Labs: Laboratory Tests Test 09/22/16 18:30 09/23/16 00:35 Troponin I Quantitative < 0.017ng/mL < 0.017ng/mL Anti-Nuclear Antibody Interpret Pending Hepatitis A IgM Antibody Negative Hepatitis B Surface Antigen Negative Hepatitis B Core IgM Antibody Negative Hepatitis C Antibody <0.1s/co ratio Sodium Level 143mmol/L Potassium Level 3.4mmol/L Chloride Level 106mmol/L Carbon Dioxide Level 29mmol/L Anion Gap 8 Blood Urea Nitrogen 7mg/dL Creatinine 0.8mg/dL Estimated GFR (Cockcroft-Gault) 82.1 Glucose Level 101mg/dL Calcium Level 9.1mg/dL Magnesium Level 2.1mg/dL PE: GEN: NAD LUNGS: CTAB HEART: RRR ABD: BS+, band-like tenderness across mid-abdomen NEURO/PSYCH: A & O 3 A/P: GERD, chest/abd pain, weight loss, constipation -cardiac etiology ruled out -long h/o GERD w/ previous EGD in 2002 (microscopic reflux, gastritis, hiatal hernia) -recently restarted PPI for frequent nocturnal reflux, post-prandial bloating -estimates 40 lb weight loss (unintentional) - Hep panel neg, LAKIA and HIV pending -abd US in 07/2016 neg for cholecystitis/cholelithiasis, chest CT unrevealing -has Miralax PRN -- Vague/evolving symptoms. D/w Dr. Vargas. Will check PIPIDA. Continue PPI. ALANIS BUTT Sep 23, 2016 13:43 EDUIN VARGAS MD Sep 23, 2016 14:11
[2016-09-23] MEDS: POLYETHYLENE GLYCOL 3350 17 GM PACKET. PO PRN (14:55)
[2016-09-24] VITALS (11 sets, daily range): BP systolic 99–131; BP diastolic 64–78
--- NOTE | 2016-09-24 10:27 | PDOC ---
PROGRESS NOTES Chief Complaint Chief Complaint CC: chest pain A/P Epigastric pain : ACS ruled out, Echo normal EF, troponin normal, ? gall bladder disease, GERD, HIDA Ordered, GI following, Severe anxiety Pre syncope: orthostasis negative. Plan HIDA scan today, awaiting final GI recommendations. PRN XANX GI and cardiology following. Protonix History of Present Illness History of Present Illness no chest pain no fever no chills. Vitals Vitals Vital Signs Date Time Temp Pulse Resp B/P Pulse Ox O2 Delivery O2 Flow Rate FiO2 09/24/16 07:00 97.9 88 16 118/78 96 Room Air 97.9 Physical Exam General: Alert, Oriented X3, Cooperative, No acute distress Heart: Regular rate, Normal S1, Normal S2, No murmurs Lungs: Clear Abdomen: Soft, No tenderness Extremities: No cyanosis, No edema Skin: No breakdown, No significant lesion Assessment and Plan Assessmemt and Plan Problems Medical Problems: (1) Chest pain Status: Acute (2) Hypokalemia Status: Acute Problems: Comment Review of Relevant I have reviewed the following items socorro (where applicable) has been applied. Labs Laboratory Tests Test 09/22/16 18:30 09/23/16 00:35 Troponin I Quantitative < 0.017ng/mL (0.000-0.055) < 0.017ng/mL (0.000-0.055) Hepatitis A IgM Antibody Negative (Negative) Hepatitis B Surface Antigen Negative (Negative) Hepatitis B Core IgM Antibody Negative (Negative) Hepatitis C Antibody <0.1s/co ratio (0.0-0.9) HIV-1 Antibody Non reactive (Non Reactive) Sodium Level 143mmol/L (136-145) Potassium Level 3.4mmol/L (3.5-5.1) Chloride Level 106mmol/L (98-107) Carbon Dioxide Level 29mmol/L (21-32) Anion Gap 8 (6-14) Blood Urea Nitrogen 7mg/dL (7-20) Creatinine 0.8mg/dL (0.6-1.0) Estimated GFR (Cockcroft-Gault) 82.1 Glucose Level 101mg/dL (70-99) Calcium Level 9.1mg/dL (8.5-10.1) Magnesium Level 2.1mg/dL (1.8-2.4) Medications Current Medications Aspirin (Ben Aspirin) 325 mg 1X ONCE PO Last administered on 09/22/16 10:09 ; Start 09/22/16 at 10:00; Stop 09/22/16 at 10:01; Status DC Ondansetron HCl (Zofran) 4 mg 1X ONCE IV Last administered on 09/22/16 10:12 ; Start 09/22/16 at 10:00; Stop 09/22/16 at 10:01; Status DC Multi-Ingredient Mouthwash/Gargle (Gi Cocktail Single Dose) 15 ml 1X ONCE SWSW Last administered on 09/22/16 10:00; Start 09/22/16 at 10:00; Stop 09/22/16 at 10:01; Status DC Morphine Sulfate 4 mg PRN Q15MIN PRN IV/SQ PAIN GREATER THAN 3/10; Start at 10:00; Stop 09/23/16 at 09:59; Status DC Potassium Chloride (Klor-Con) 40 meq 1X ONCE PO Last administered on 11:05; Start 09/22/16 at 11:00; Stop 09/22/16 at 11:15; Status DC Potassium Chloride (KCl Oral Soln) 40 meq 1X ONCE PO Last administered on 09/22 11:30; Start 09/22/16 at 11:30; Stop 09/22/16 at 11:31; Status DC Fluoxetine HCl (Prozac) 20 mg DAILY PO Last administered on 09/23/16 08:21; Start 09/23/16 at 09:00 Alprazolam (Xanax) 0.5 mg QIDPRN PRN PO ANXIETY Last administered on 09/23/16 22:03; Start 09/22/16 at 12:00 Acetaminophen/ Hydrocodone Bitart (Lortab 5/325) 1 tab PRN Q6HRS PRN PO PAIN Last administered on 09/22/16 17:13; Start 09/22/16 at 12:15 Non-Formulary Medication 100 mg BID PO ; Start 09/22/16 at 21:00; Status UNV Ondansetron HCl (Zofran) 4 mg PRN Q8HRS PRN IV NAUSEA/VOMITING; Start 09/22/16 at 12:30; Stop 09/23/16 at 12:29; Status DC Morphine Sulfate 2 mg PRN Q2HR PRN IV PAIN; Start 09/22/16 at 12:30; Stop 09/23 at 12:29; Status DC Acetaminophen (Tylenol) 650 mg PRN Q4HRS PRN PO FEVER; Start 09/22/16 at 12:30 ; Stop 09/23/16 at 12:29; Status DC Nitroglycerin (Nitrostat) 0.4 mg PRN Q5MIN PRN SL CHEST PAIN; Start 09/22/16 at 12:30; Stop 09/23/16 at 12:29; Status DC Cyclobenzaprine HCl (Flexeril) 10 mg PRN Q6HRS PRN PO MUSCLE SPASMS; Start at 13:30 Pantoprazole Sodium (Protonix) 40 mg DAILYAC PO Last administered on 09/23/16 08:21; Start 09/23/16 at 07:30 Multi-Ingredient Mouthwash/Gargle (Gi Cocktail Single Dose) 15 ml PRN 1X PRN SWSW CHEST PAIN Last administered on 09/22/16 22:03; Start 09/22/16 at 15:00 Polyethylene Glycol (miraLAX PACKET) 17 gm PRN DAILY PRN PO CONSTIPATION Last administered on 09/23/16 14:55; Start 09/22/16 at 15:00 Potassium Chloride (Klor-Con) 40 meq 1X ONCE PO Last administered on 12:22; Start 09/23/16 at 11:00; Stop 09/23/16 at 11:01; Status DC Active Scripts Active Orphenadrine Citrate 100 Mg Tablet.er 100 Mg PO BID [place] 5-325 Tablet (Acetaminophen/Hydrocodone Bitart) 1 Each Tablet 1 Tab PO PRN Q6HRS PRN Reported Tylenol (Acetaminophen) 325 Mg Tablet 650 Mg PO PRN Flonase Allergy Relief (Fluticasone Propionate) 9.9 Ml [place].susp 2 Sprays NS DAILY Afrin (Oxymetazoline Hcl) 30 Ml [place] 30 Ml NS TID PRN PRN Omeprazole 20 Mg Capsule. 1 Cap PO DAILY Vitals/I & O Vital Sign - Last 24 Hours 09/23/16 09/23/16 09/23/16 09/23/16 14:47 19:00 19:02 19:04 Temp 98.5 97.9 98.5 97.9 Pulse 80 80 92 72 Resp 18 22 20 B/P 110/81 118/79 112/81 116/78 Pulse Ox 96 97 95 96 O2 Delivery Room Air Room Air Room Air Room Air 09/23/16 09/23/16 09/24/16 09/24/16 19:35 22:53 03:00 07:00 Temp 97.7 97.9 97.9 97.7 97.9 97.9 Pulse 76 83 88 Resp 16 B/P 118/76 109/69 118/78 Pulse Ox 95 98 96 O2 Delivery Room Air Room Air Room Air Room Air Intake and Output 09/23/16 09/23/16 09/24/16 15:00 23:00 07:00 Intake Total 1260 ml 1460 ml 320 ml Balance 1260 ml 1460 ml 320 ml KRISHNA JEFFERSON MD Sep 24, 2016 10:27
[2016-09-24] MEDS ORDERED: LORAZEPAM 2 MG/ML VIAL IV ONE (12:00)
--- NOTE | 2016-09-24 12:07 | PDOC ---
Subjective: Subjective: Today has some dizziness and anxiety. Chest discomfort has recurred a little - heartburn it seems. Awoke during the night w/ reflux, feels coughed up some undigested food. Did have two BMs. Not sure if she has mid-epigastric cramping like yesterday. Asks a lot of questions about how to treat anxiety. Wants to gain weight. Objective: Vital Signs: Vital Signs Date Time Temp Pulse Resp B/P Pulse Ox O2 Delivery O2 Flow Rate FiO2 09/24/16 11:08 79 112/69 09/24/16 11:00 97.6 16 96 Room Air 97.6 PE: GEN: NAD LUNGS: CTAB HEART: RRR ABD: BS+ vaguely tender NEURO/PSYCH: A & O 3 A/P: GERD, chest/abd pain, weight loss -cardiac etiology ruled out -long h/o GERD w/ previous EGD in 2002 (microscopic reflux, gastritis, hiatal hernia) -recently restarted PPI for frequent nocturnal reflux, post-prandial bloating -estimates 40 lb weight loss (unintentional) - Hep panel and HIV neg, LAKIA pending -abd US in 07/2016 neg for cholecystitis/cholelithiasis, chest CT unrevealing Constipation - resolved Anxiety -per primary -- Difficult to get a good feel for her symptoms as they change some each day. Continue PPI QD and Miralax PRN. Await PIPIDA. Note possible DC today - if PIPIDA normal, ?consider outpt GET. ALANIS BUTT Sep 24, 2016 12:06
[2016-09-24] MEDS ORDERED: SINCALIDE 1.69 MCG in IV NORMAL SALINE 50ML 30 ML IV ONE (13:45)
--- NOTE | 2016-09-24 14:56 | RAD ---
EXAM: Nuclear hepatobiliary scan. HISTORY: Pain. TECHNIQUE: Following intravenous administration of 5 mCi Tc 99m Choletec, anterior images of the abdomen were obtained at five minute intervals through one hour. Subsequently, 1.7 mcg CCK was administered and additional images to assess gallbladder ejection fraction were obtained. FINDINGS: There is prompt radiotracer uptake by the liver. No focal defect is seen. There is excretion of tracer into the biliary tree. The gallbladder is visualized within sixty minutes and there is flow into the duodenum. The gallbladder ejection fraction is 2%. IMPRESSION: Severely decreased gallbladder ejection fraction of 2%.
[2016-09-24] MEDS: PANTOPRAZOLE 40 MG TABLET. PO SCH (16:59)
[2016-09-24] MEDS: FLUOXETINE HCL 20 MG CAPSULE PO SCH (17:00)
--- NOTE | 2016-09-24 17:37 | PDOC2 ---
CONSULT Date of Consult Date of Consult DATE: 09/24/16 TIME: 17:34 Reason for Consult Reason for Consult: Abnormal HIDA scan Referring Physician Referring Physician: Rene Identification/Chief Complaint Chief Complaint Chest pain with reflux Source Source: Patient History of Present Illness Reason for Visit: 36 yo female admitted with chest pain and reflux symptoms. Cardiac workup negative. She also has bloating and nausea after eating. HIDA scan done showing EF of 2% with symptoms. Past Medical History Cardiovascular: No pertinent hx Pulmonary: No pertinent hx CENTRAL NERVOUS SYSTEM: Other (No pertinent history) GI: GERD Heme/Onc: No pertinent hx Hepatobiliary: No pertinent hx Psych: Depression () Musculoskeletal: Other (obesity) Rheumatologic: No pertinent hx Infectious disease: No pertinent hx ENT: Sincusitis Renal/: No pertinent hx, Other (2 miscarriages) Endocrine: Diabetes (gestational DM), Other (LA implanon) Dermatology: No pertinent hx Grav: 6 Para: 4 Past Surgical History Past Surgical History: Other (EGD) Family History Family History: No Significant Social History No ALCOHOL: none Drugs: None Lives: with Family Current Problem List Problem List Problems Medical Problems: (1) Chest pain Status: Acute (2) Hypokalemia Status: Acute Current Medications Current Medications Current Medications Aspirin (Ben Aspirin) 325 mg 1X ONCE PO Last administered on 09/22/16 10:09 ; Start 09/22/16 at 10:00; Stop 09/22/16 at 10:01; Status DC Ondansetron HCl (Zofran) 4 mg 1X ONCE IV Last administered on 09/22/16 10:12 ; Start 09/22/16 at 10:00; Stop 09/22/16 at 10:01; Status DC Multi-Ingredient Mouthwash/Gargle (Gi Cocktail Single Dose) 15 ml 1X ONCE SWSW Last administered on 09/22/16 10:00; Start 09/22/16 at 10:00; Stop 09/22/16 at 10:01; Status DC Morphine Sulfate 4 mg PRN Q15MIN PRN IV/SQ PAIN GREATER THAN 3/10; Start at 10:00; Stop 09/23/16 at 09:59; Status DC Potassium Chloride (Klor-Con) 40 meq 1X ONCE PO Last administered on 11:05; Start 09/22/16 at 11:00; Stop 09/22/16 at 11:15; Status DC Potassium Chloride (KCl Oral Soln) 40 meq 1X ONCE PO Last administered on 09/22 11:30; Start 09/22/16 at 11:30; Stop 09/22/16 at 11:31; Status DC Fluoxetine HCl (Prozac) 20 mg DAILY PO Last administered on 09/24/16 17:00; Start 09/23/16 at 09:00 Alprazolam (Xanax) 0.5 mg QIDPRN PRN PO ANXIETY Last administered on 09/23/16 22:03; Start 09/22/16 at 12:00 Acetaminophen/ Hydrocodone Bitart (Lortab 5/325) 1 tab PRN Q6HRS PRN PO PAIN Last administered on 09/22/16 17:13; Start 09/22/16 at 12:15 Non-Formulary Medication 100 mg BID PO ; Start 09/22/16 at 21:00; Status UNV Ondansetron HCl (Zofran) 4 mg PRN Q8HRS PRN IV NAUSEA/VOMITING; Start 09/22/16 at 12:30; Stop 09/23/16 at 12:29; Status DC Morphine Sulfate 2 mg PRN Q2HR PRN IV PAIN; Start 09/22/16 at 12:30; Stop 09/23 at 12:29; Status DC Acetaminophen (Tylenol) 650 mg PRN Q4HRS PRN PO FEVER; Start 09/22/16 at 12:30 ; Stop 09/23/16 at 12:29; Status DC Nitroglycerin (Nitrostat) 0.4 mg PRN Q5MIN PRN SL CHEST PAIN; Start 09/22/16 at 12:30; Stop 09/23/16 at 12:29; Status DC Cyclobenzaprine HCl (Flexeril) 10 mg PRN Q6HRS PRN PO MUSCLE SPASMS; Start at 13:30 Pantoprazole Sodium (Protonix) 40 mg DAILYAC PO Last administered on 09/24/16 16:59; Start 09/23/16 at 07:30 Multi-Ingredient Mouthwash/Gargle (Gi Cocktail Single Dose) 15 ml PRN 1X PRN SWSW CHEST PAIN Last administered on 09/22/16 22:03; Start 09/22/16 at 15:00; Stop 09/24/16 at 14:48; Status DC Polyethylene Glycol (miraLAX PACKET) 17 gm PRN DAILY PRN PO CONSTIPATION Last administered on 09/23/16 14:55; Start 09/22/16 at 15:00 Potassium Chloride (Klor-Con) 40 meq 1X ONCE PO Last administered on 12:22; Start 09/23/16 at 11:00; Stop 09/23/16 at 11:01; Status DC Lorazepam 1 mg 1 mg 1X ONCE IV Last administered on 09/24/16 12:29; Start at 12:00; Stop 09/24/16 at 12:01; Status DC Sincalide/Sodium Chloride (Kinevac/Iv Sodium Chloride 0.9% 50ml) 30 ml @ 120 mls/hr 1X ONCE IV Last administered on 09/24/16 14:37; Start 09/24/16 at 13: 45; Stop 09/24/16 at 13:59; Status DC Active Scripts Active Orphenadrine Citrate 100 Mg Tablet.er 100 Mg PO BID [place] 5-325 Tablet (Acetaminophen/Hydrocodone Bitart) 1 Each Tablet 1 Tab PO PRN Q6HRS PRN Reported Tylenol (Acetaminophen) 325 Mg Tablet 650 Mg PO PRN Flonase Allergy Relief (Fluticasone Propionate) 9.9 Ml [place].susp 2 Sprays NS DAILY Afrin (Oxymetazoline Hcl) 30 Ml [place] 30 Ml NS TID PRN PRN Omeprazole 20 Mg Capsule. 1 Cap PO DAILY Allergies Allergies: Coded Allergies: No Known Drug Allergies (Unverified , 08/03/16) ROS Gastrointestinal: Yes Abdominal Pain, Yes Constipation, Yes Nausea Physical Exam General: Alert, Oriented X3, Cooperative, mild distress HEENT: Atraumatic, PERRLA, EOMI Lungs: Clear to auscultation, Normal air movement Heart: Regular rate, No murmurs Abdomen: Normal bowel sounds, Soft, Other (TTP RUQ) Extremities: No edema Skin: No significant lesion Neuro: Normal speech Psych/Mental Status: Mental status NL Vitals VITALS Vital Signs Date Time Temp Pulse Resp B/P Pulse Ox O2 Delivery O2 Flow Rate FiO2 09/24/16 15:00 97.5 95 16 131/74 97 Room Air 97.5 Labs Labs Laboratory Tests Test 09/22/16 18:30 09/23/16 00:35 Troponin I Quantitative < 0.017ng/mL (0.000-0.055) < 0.017ng/mL (0.000-0.055) Hepatitis A IgM Antibody Negative (Negative) Hepatitis B Surface Antigen Negative (Negative) Hepatitis B Core IgM Antibody Negative (Negative) Hepatitis C Antibody <0.1s/co ratio (0.0-0.9) HIV-1 Antibody Non reactive (Non Reactive) Sodium Level 143mmol/L (136-145) Potassium Level 3.4mmol/L (3.5-5.1) Chloride Level 106mmol/L (98-107) Carbon Dioxide Level 29mmol/L (21-32) Anion Gap 8 (6-14) Blood Urea Nitrogen 7mg/dL (7-20) Creatinine 0.8mg/dL (0.6-1.0) Estimated GFR (Cockcroft-Gault) 82.1 Glucose Level 101mg/dL (70-99) Calcium Level 9.1mg/dL (8.5-10.1) Magnesium Level 2.1mg/dL (1.8-2.4) Assessment/Plan Assessment/Plan Biliary Dyskinesia Plan L/S Janell tomorrow ASHUTOSH ENGEL MD Sep 24, 2016 17:37
[2016-09-24] MEDS: ALPRAZOLAM 0.5 MG TABLET. PO PRN (20:21)
[2016-09-24] MEDS ORDERED: CYCLOBENZAPRINE 10 MG TABLET. PO PRN (20:59)
[2016-09-24 22:35] LABS: BILIRUBIN,URINE NEGATIVE (NEG); GLUCOSE,URINE NEGATIVE (NEG); NITRITE,URINE NEGATIVE (NEG); PH,URINE 6.5; PROTEIN,URINE NEGATIVE (NEG-TRACE); UROBILINOGEN,URINE 0.2 mg/dL (0.2 mg/dL)
[2016-09-24 22:42] LABS: BACTERIA,URINE FEW /HPF (0-FEW); RBC,URINE 0 /HPF (0-2); SQUAMOUS EPITHELIAL CELL,UR MOD /LPF; WBC,URINE OCC /HPF (0-4)
[2016-09-25] VITALS (7 sets, daily range): BP systolic 104–128; BP diastolic 65–83
[2016-09-25] MEDS ORDERED: SURGICEL HEMOSTAT 4X8 EACH. ONE ×2 (07:10→10:20)
[2016-09-25] MEDS ORDERED: BUPIVACAINE-EPI 0.25%-1:200000 MPF 30 ML VIAL. ONE ×2 (07:10→10:20)
[2016-09-25] MEDS ORDERED: IOHEXOL 300 MG/ML 50 ML VIAL. ONE ×2 (07:10→10:20)
[2016-09-25] MEDS: PANTOPRAZOLE 40 MG TABLET. PO SCH (07:30)
[2016-09-25] MEDS: FLUOXETINE HCL 20 MG CAPSULE PO SCH (09:00)
--- NOTE | 2016-09-25 09:51 | PDOC ---
PROGRESS NOTES Chief Complaint Chief Complaint CC: chest pain A/P Epigastric pain : ACS ruled out, Echo normal EF, troponin normal, Gall bladder Hypokinesis, planning for cholecystectomy. Severe anxiety Pre syncope: orthostasis negative. Plan Attempted to see pt, but went for surgery. chart reviewed, d/w RN, Vitals Vitals Vital Signs Date Time Temp Pulse Resp B/P Pulse Ox O2 Delivery O2 Flow Rate FiO2 09/25/16 07:00 98.4 102 16 125/82 97 Room Air 98.4 Labs LABS Laboratory Tests Test 09/24/16 22:00 Urine Collection Type Unknown Urine Color Yellow Urine Clarity Clear Urine pH 6.5 Urine Specific [place] <=1.005 Urine Protein Negativemg/dL (NEG-TRACE) Urine Glucose (UA) Negativemg/dL (NEG) Urine Ketones (Stick) Negativemg/dL (NEG) Urine Blood Negative (NEG) Urine Nitrite Negative (NEG) Urine Bilirubin Negative (NEG) Urine Urobilinogen Dipstick 0.2mg/dL (0.2 mg/dL) Urine Leukocyte Esterase Negative (NEG) Urine RBC 0/HPF (0-2) Urine WBC Occ/HPF (0-4) Urine Squamous Epithelial Cells Mod/LPF Urine Bacteria Few/HPF (0-FEW) Urine Mucus Slight/LPF Assessment and Plan Assessmemt and Plan Problems Medical Problems: (1) Chest pain Status: Acute (2) Hypokalemia Status: Acute Problems: Comment Review of Relevant I have reviewed the following items socorro (where applicable) has been applied. Labs Laboratory Tests Test 09/24/16 22:00 Urine Collection Type Unknown Urine Color Yellow Urine Clarity Clear Urine pH 6.5 Urine Specific [place] <=1.005 Urine Protein Negativemg/dL (NEG-TRACE) Urine Glucose (UA) Negativemg/dL (NEG) Urine Ketones (Stick) Negativemg/dL (NEG) Urine Blood Negative (NEG) Urine Nitrite Negative (NEG) Urine Bilirubin Negative (NEG) Urine Urobilinogen Dipstick 0.2mg/dL (0.2 mg/dL) Urine Leukocyte Esterase Negative (NEG) Urine RBC 0/HPF (0-2) Urine WBC Occ/HPF (0-4) Urine Squamous Epithelial Cells Mod/LPF Urine Bacteria Few/HPF (0-FEW) Urine Mucus Slight/LPF Laboratory Tests Test 09/24/16 22:00 Urine Collection Type Unknown Urine Color Yellow Urine Clarity Clear Urine pH 6.5 Urine Specific [place] <=1.005 Urine Protein Negativemg/dL (NEG-TRACE) Urine Glucose (UA) Negativemg/dL (NEG) Urine Ketones (Stick) Negativemg/dL (NEG) Urine Blood Negative (NEG) Urine Nitrite Negative (NEG) Urine Bilirubin Negative (NEG) Urine Urobilinogen Dipstick 0.2mg/dL (0.2 mg/dL) Urine Leukocyte Esterase Negative (NEG) Urine RBC 0/HPF (0-2) Urine WBC Occ/HPF (0-4) Urine Squamous Epithelial Cells Mod/LPF Urine Bacteria Few/HPF (0-FEW) Urine Mucus Slight/LPF Medications Current Medications Aspirin ([place]icket Aspirin) 325 mg 1X ONCE PO Last administered on 09/22/16 10:09 ; Start 09/22/16 at 10:00; Stop 09/22/16 at 10:01; Status DC Ondansetron HCl (Zofran) 4 mg 1X ONCE IV Last administered on 09/22/16 10:12 ; Start 09/22/16 at 10:00; Stop 09/22/16 at 10:01; Status DC Multi-Ingredient Mouthwash/Gargle (Gi Cocktail Single Dose) 15 ml 1X ONCE SWSW Last administered on 09/22/16 10:00; Start 09/22/16 at 10:00; Stop 09/22/16 at 10:01; Status DC Morphine Sulfate 4 mg PRN Q15MIN PRN IV/SQ PAIN GREATER THAN 3/10; Start at 10:00; Stop 09/23/16 at 09:59; Status DC Potassium Chloride (Klor-Con) 40 meq 1X ONCE PO Last administered on 11:05; Start 09/22/16 at 11:00; Stop 09/22/16 at 11:15; Status DC Potassium Chloride (KCl Oral Soln) 40 meq 1X ONCE PO Last administered on 09/22 11:30; Start 09/22/16 at 11:30; Stop 09/22/16 at 11:31; Status DC Fluoxetine HCl (Prozac) 20 mg DAILY PO Last administered on 09/24/16 17:00; Start 09/23/16 at 09:00 Alprazolam (Xanax) 0.5 mg QIDPRN PRN PO ANXIETY Last administered on 09/24/16 20:21; Start 09/22/16 at 12:00 Acetaminophen/ Hydrocodone Bitart (Lortab 5/325) 1 tab PRN Q6HRS PRN PO PAIN Last administered on 09/22/16 17:13; Start 09/22/16 at 12:15 Non-Formulary Medication 100 mg BID PO ; Start 09/22/16 at 21:00; Status UNV Ondansetron HCl (Zofran) 4 mg PRN Q8HRS PRN IV NAUSEA/VOMITING; Start 09/22/16 at 12:30; Stop 09/23/16 at 12:29; Status DC Morphine Sulfate 2 mg PRN Q2HR PRN IV PAIN; Start 09/22/16 at 12:30; Stop 09/23 at 12:29; Status DC Acetaminophen (Tylenol) 650 mg PRN Q4HRS PRN PO FEVER; Start 09/22/16 at 12:30 ; Stop 09/23/16 at 12:29; Status DC Nitroglycerin (Nitrostat) 0.4 mg PRN Q5MIN PRN SL CHEST PAIN; Start 09/22/16 at 12:30; Stop 09/23/16 at 12:29; Status DC Cyclobenzaprine HCl (Flexeril) 10 mg PRN Q6HRS PRN PO MUSCLE SPASMS; Start at 13:30; Stop 09/24/16 at 20:59; Status DC Pantoprazole Sodium (Protonix) 40 mg DAILYAC PO Last administered on 09/24/16 16:59; Start 09/23/16 at 07:30 Multi-Ingredient Mouthwash/Gargle (Gi Cocktail Single Dose) 15 ml PRN 1X PRN SWSW CHEST PAIN Last administered on 09/22/16 22:03; Start 09/22/16 at 15:00; Stop 09/24/16 at 14:48; Status DC Polyethylene Glycol (miraLAX PACKET) 17 gm PRN DAILY PRN PO CONSTIPATION Last administered on 09/23/16 14:55; Start 09/22/16 at 15:00 Potassium Chloride (Klor-Con) 40 meq 1X ONCE PO Last administered on 12:22; Start 09/23/16 at 11:00; Stop 09/23/16 at 11:01; Status DC Lorazepam 1 mg 1 mg 1X ONCE IV Last administered on 09/24/16 12:29; Start at 12:00; Stop 09/24/16 at 12:01; Status DC Sincalide 1.69 mcg/Sodium Chloride 30 ml @ 120 mls/hr 1X ONCE IV Last administered on 09/24/16 14:37; Start 09/24/16 at 13:45; Stop 09/24/16 at 13:59 ; Status DC Cefazolin Sodium/ Dextrose (Ancef 2gm Premix) 50 ml @ 100 mls/hr 1X ONCE IV ; Start 09/25/16 at 12:00; Stop 09/25/16 at 12:29 Cyclobenzaprine HCl (Flexeril) 10 mg PRN Q6HRS PRN PO MUSCLE SPASMS; Start at 20:59 Cellulose 1 each STK-MED ONCE .ROUTE ; Start 09/25/16 at 07:10; Stop 09/25/16 at 07:11; Status DC Iohexol (Omnipaque 300 Mg/ml) 50 ml STK-MED ONCE .ROUTE ; Start 09/25/16 at 07: 10; Stop 09/25/16 at 07:11; Status DC Bupivacaine HCl/ Epinephrine Bitart (Sensorcaine-Epi 0.25%-1:717065 Mpf) 30 ml STK-MED ONCE .ROUTE ; Start 09/25/16 at 07:10; Stop 09/25/16 at 07:11; Status DC Active Scripts Active Orphenadrine Citrate 100 Mg Tablet.er 100 Mg PO BID [place] 5-325 Tablet (Acetaminophen/Hydrocodone Bitart) 1 Each Tablet 1 Tab PO PRN Q6HRS PRN Reported Tylenol (Acetaminophen) 325 Mg Tablet 650 Mg PO PRN Flonase Allergy Relief (Fluticasone Propionate) 9.9 Ml [place].susp 2 Sprays NS DAILY Afrin (Oxymetazoline Hcl) 30 Ml [place] 30 Ml NS TID PRN PRN Omeprazole 20 Mg Capsule.dr 1 Cap PO DAILY Vitals/I & O Vital Sign - Last 24 Hours 09/24/16 09/24/16 09/24/16 09/24/16 11:00 11:02 11:03 11:08 Temp 97.6 97.6 Pulse 76 75 76 79 Resp 16 B/P 110/64 100/66 102/74 112/69 Pulse Ox 96 O2 Delivery Room Air 09/24/16 09/24/16 09/24/16 09/24/16 15:00 19:00 19:02 19:04 Temp 97.5 96.9 97.5 96.9 Pulse 95 86 111 74 Resp 16 20 20 20 B/P 131/74 116/78 107/68 110/64 Pulse Ox 97 97 96 97 O2 Delivery Room Air Room Air Room Air Room Air 09/24/16 09/24/16 09/25/16 09/25/16 20:00 23:01 03:00 07:00 Temp 97.9 97.5 98.4 97.9 97.5 98.4 Pulse 70 86 102 Resp 20 20 16 B/P 99/66 112/65 125/82 Pulse Ox 96 98 97 O2 Delivery Room Air Room Air Room Air Room Air Intake and Output 09/24/16 09/24/16 09/25/16 15:00 23:00 07:00 Intake Total 200 ml 0 ml Balance 200 ml 0 ml KRISHNA JEFFERSON MD Sep 25, 2016 09:51
[2016-09-25 09:53] LABS: NEG OBC UR NEG; POS OBC UR POS
--- NOTE | 2016-09-25 11:04 | PDOC ---
Subjective: Subjective: Feeling anxious. A little RUQ discomfort and RLQ discomfort. Small BM earlier. Plans for cholecystectomy today. Objective: Vital Signs: Vital Signs Date Time Temp Pulse Resp B/P Pulse Ox O2 Delivery O2 Flow Rate FiO2 09/25/16 10:33 92 112/78 98 Room Air 09/25/16 10:32 98.5 16 98.5 Labs: Laboratory Tests Test 09/24/16 22:00 09/25/16 09:00 Urine Collection Type Unknown Urine Color Yellow Urine Clarity Clear Urine pH 6.5 Urine Specific [place] <=1.005 Urine Protein Negativemg/dL Urine Glucose (UA) Negativemg/dL Urine Ketones (Stick) Negativemg/dL Urine Blood Negative Urine Nitrite Negative Urine Bilirubin Negative Urine Urobilinogen Dipstick 0.2mg/dL Urine Leukocyte Esterase Negative Urine RBC 0/HPF Urine WBC Occ/HPF Urine Squamous Epithelial Cells Mod/LPF Urine Bacteria Few/HPF Urine Mucus Slight/LPF Urine Test Negative Imaging: PIPIDA IMPRESSION: Severely decreased gallbladder ejection fraction of 2%. PE: GEN: NAD LUNGS: CTAB HEART: RRR ABD: NABS, RUQ discomfort toward RLQ NEURO/PSYCH: A & O 3 A/P: Biliary dyskinesia -PIPIDA as above Chest/abd pain, GERD, weight loss -cardiac etiology ruled out -long h/o GERD w/ previous EGD in 2002 (microscopic reflux, gastritis, hiatal hernia), recently restarted PPI -estimates 40 lb weight loss (unintentional) - Hep panel and HIV neg, LAKIA pending Anxiety -per primary -- Cholecystectomy planned for today. ALANIS BUTT Sep 25, 2016 11:04
[2016-09-25] MEDS ORDERED: CEFAZOLIN 2GM PREMIX 50 ML IV ONE (12:00)
[2016-09-25] MEDS ORDERED: IV RINGERS,LACTATED 1000ML 1,000 ML IV SCH (12:26)
[2016-09-25] MEDS ORDERED: PROCHLORPERAZINE 10 MG/2 ML VIAL. IV PRN (12:30)
[2016-09-25] MEDS ORDERED: ONDANSETRON PF 4 MG/2 ML VIAL. IV PRN (12:30)
[2016-09-25] MEDS ORDERED: HYDROMORPHONE 2 MG/ML VIAL. IV PRN (12:30)
[2016-09-25] MEDS ORDERED: LIDOCAINE 1% 1 ML SYRINGE. ID PRN (12:30)
[2016-09-25] MEDS ORDERED: FENTANYL PF 100 MCG/2 ML VIAL. IV PRN (12:30)
[2016-09-25] MEDS ORDERED: ROCURONIUM 50 MG/5 ML VIAL. ONE (12:33)
[2016-09-25] MEDS ORDERED: FENTANYL PF 100 MCG/2 ML VIAL. ONE ×2 (12:33→13:31)
[2016-09-25] MEDS ORDERED: PROPOFOL 20 ML IV ONE (12:36)
[2016-09-25] MEDS ORDERED: DESFLURANE > 120 MINUTES IH ONE (12:36)
[2016-09-25] MEDS ORDERED: LIDOCAINE 2% 100 MG/5 ML DISP.SYRIN. ONE (12:36)
[2016-09-25] MEDS ORDERED: ONDANSETRON PF 4 MG/2 ML VIAL. ONE (12:36)
[2016-09-25] MEDS ORDERED: DEXAMETHASONE SOD PHOS 20 MG/5 ML VIAL. ONE (12:36)
[2016-09-25] MEDS ORDERED: ESMOLOL 100 MG/10 ML VIAL. IV ONE (12:57)
[2016-09-25] MEDS ORDERED: GLYCOPYRROLATE 1 MG/5 ML VIAL. ONE (13:18)
[2016-09-25] MEDS ORDERED: NEOSTIGMINE METHYLSULFATE 5 MG/5 ML SYRINGE. ONE (13:19)
--- NOTE | 2016-09-25 13:37 | PDOC ---
BRIEF OPERATIVE NOTE Date: Sep 25, 2016 Pre-Op Diagnosis Biliary Kiskinesia Post-Op Diagnosis Same Procedure Performed L/S Cholecystectomy Surgeon Jeremy Anesthesia Type: General Blood Loss 10ml Specimens Obtained Gallbladder Findings as above Complications None ASHUTOSH ENGEL MD Sep 25, 2016 13:37
[2016-09-25] MEDS ORDERED: OXYCODONE/APAP 5/325 TABLET. PO PRN ×2 (13:45)
[2016-09-25] MEDS: FENTANYL PF 100 MCG/2 ML VIAL. IV PRN ×2 (13:46→14:05)
--- NOTE | 2016-09-25 14:17 | OP ---
DATE OF SURGERY: 09/25/2016 PREOPERATIVE DIAGNOSIS: Biliary dyskinesia. POSTOPERATIVE DIAGNOSIS: Biliary dyskinesia. PROCEDURE: Laparoscopic cholecystectomy. SURGEON: Jimy Engel MD INDICATIONS: The patient is a 36-year-old female who was admitted to the hospital with epigastric right upper quadrant and chest pain. Cardiac workup was negative. HIDA scan showing an ejection fraction of the gallbladder of only 2% with recurrence of her symptoms. Procedure of laparoscopic cholecystectomy was explained to the patient in detail. Risks, benefits were also discussed including bleeding, infection, injury to intra-abdominal contents, possibly sustaining further open operations. Alternatives of this procedure were also discussed with the patient who seemed to understand and gave a verbal and written consent to have the procedure performed. DESCRIPTION OF PROCEDURE: The patient was taken to the operating room and placed in the supine position, general anesthesia was initiated. Once the patient was asleep and intubated, her abdomen was prepped and draped in usual sterile fashion using ChloraPrep. An area just below the umbilicus injected with 0.25% Marcaine with epinephrine. Incision was made with an 11 blade scalpel and a Veress needle was placed within the abdomen. Pneumoperitoneum was achieved. Once this was complete, an 11 mm port was placed and a 5 mm camera was placed in the abdomen. No other abnormalities were noted. At this point, three 5 mm ports were placed, one in the epigastrium, 2 in the right upper quadrant under direct visualization. The dome of the gallbladder was grasped and retracted cephalad. Infundibulum of the gallbladder was grasped and retracted laterally exposing the triangle of [place]. Adherent tissues of the triangle were taken down with blunt dissection exposing the cystic duct and cystic artery. Both were doubly clipped and transected. The gallbladder was taken off the liver with hook electrocautery, placed in EndoCatch bag and removed from the umbilicus. Right upper quadrant was irrigated and suctioned dry. Hemostasis seemed to be appropriate and the pneumoperitoneum was reduced. All ports were removed. Fascial defect at the umbilicus closed with [id number] 0 Vicryl suture and the skin was reapproximated at all port sites with 4-0 subcuticular Monocryl. Mastisol, Steri-Strips and Band-Aids were applied as dressing. The patient was awakened, extubated in the operating room, taken to recovery in stable condition. All sponge, instrument counts listed as correct. Estimated blood loss 10 mL. JIMY ENGEL MD DR: JUAN/juanita JOB#: [id number] / [id number]
[2016-09-25] MEDS: MORPHINE SULFATE 2 MG/ML DISP.SYRIN. IV PRN ×3 (15:19→15:36)
[2016-09-25] MEDS: HYDROCODONE/APAP 5/325MG TABLET. PO PRN (20:01)
[2016-09-25] MEDS: ALPRAZOLAM 0.5 MG TABLET. PO PRN (20:39)
[2016-09-26] VITALS (10 sets, daily range): BP systolic 108–136; BP diastolic 67–83
[2016-09-26] MEDS: HYDROCODONE/APAP 5/325MG TABLET. PO PRN ×2 (03:48→19:48)
[2016-09-26] MEDS ORDERED: PANTOPRAZOLE 40 MG TABLET.DR. PO ONE (05:57)
[2016-09-26] MEDS: PANTOPRAZOLE 40 MG TABLET. PO SCH (06:20)
[2016-09-26 06:40] LABS: BASO # 0.1 x10^3/uL (0.0-0.2); BASO % 1 % (0-3); EOS % 0 % (0-3); HEMATOCRIT 41.6 % (36.0-47.0); HEMOGLOBIN 13.9 g/dL (12.0-15.5); LYMPH # 2.7 x10^3/uL (1.0-4.8); LYMPH % 15 % (24-48); MEAN CORPUSCULAR HEMOGLOBIN 32 pg (25-35); MEAN CORPUSCULAR HGB CONC 34 g/dL (31-37); MEAN CORPUSCULAR VOLUME 94 fL (79-100); MONO % 6 % (0-9); NEUT % 79 % (31-73); PLATELET COUNT 289 x10^3/uL (140-400); RED BLOOD COUNT 4.42 x10^6/uL (3.50-5.40); RED CELL DISTRIBUTION WIDTH 13.2 % (11.5-14.5); WHITE BLOOD COUNT 18.1 x10^3/uL (4.0-11.0)
[2016-09-26 06:42] LABS: CALCIUM 9.3 mg/dL (8.5-10.1); CREATININE 0.6 mg/dL (0.6-1.0); GFR 114.4; POTASSIUM 3.9 mmol/L (3.5-5.1)
[2016-09-26] MEDS ORDERED: FLUOXETINE HCL 20 MG CAPSULE. ONE (08:01)
[2016-09-26] MEDS: FLUOXETINE HCL 20 MG CAPSULE PO SCH (08:15)
--- NOTE | 2016-09-26 08:48 | PDOC ---
SURGICAL PROGRESS NOTE Subjective Doing ok, complains of some pain at the umbilical incision site. Tolerating diet Vital Signs Vital Signs Date Time Temp Pulse Resp B/P Pulse Ox O2 Delivery O2 Flow Rate FiO2 09/26/16 04:50 20 Room Air 09/26/16 03:00 98.1 87 125/83 93 98.1 09/25/16 14:05 8.0 I&O Intake and Output 09/26/16 07:00 Intake Total 490 ml Output Total 1500 ml Balance -1010 ml Intake Oral 440 ml IV Total 50 ml Output Urine Total 1500 ml PATIENT HAS A FELDMAN: No General: Alert, Oriented X3, Cooperative, mild distress Abdomen: Normal bowel sounds, Soft, Other (mildly TTP at umbilicus) Labs Laboratory Tests Test 09/24/16 22:00 09/25/16 09:00 09/26/16 05:45 Urine Collection Type Unknown Urine Color Yellow Urine Clarity Clear Urine pH 6.5 Urine Specific [place] <=1.005 Urine Protein Negativemg/dL (NEG-TRACE) Urine Glucose (UA) Negativemg/dL (NEG) Urine Ketones (Stick) Negativemg/dL (NEG) Urine Blood Negative (NEG) Urine Nitrite Negative (NEG) Urine Bilirubin Negative (NEG) Urine Urobilinogen Dipstick 0.2mg/dL (0.2 mg/dL) Urine Leukocyte Esterase Negative (NEG) Urine RBC 0/HPF (0-2) Urine WBC Occ/HPF (0-4) Urine Squamous Epithelial Cells Mod/LPF Urine Bacteria Few/HPF (0-FEW) Urine Mucus Slight/LPF Urine Test Negative (NEG) White Blood Count 18.1x10^3/uL (4.0-11.0) Red Blood Count 4.42x10^6/uL (3.50-5.40) Hemoglobin 13.9g/dL (12.0-15.5) Hematocrit 41.6% (36.0-47.0) Mean Corpuscular Volume 94fL (79-100) Mean Corpuscular Hemoglobin 32pg (25-35) Mean Corpuscular Hemoglobin Concent 34g/dL (31-37) Red Cell Distribution Width 13.2% (11.5-14.5) Platelet Count 289x10^3/uL (140-400) Neutrophils (%) (Auto) 79% (31-73) Lymphocytes (%) (Auto) 15% (24-48) Monocytes (%) (Auto) 6% (0-9) Eosinophils (%) (Auto) 0% (0-3) Basophils (%) (Auto) 1% (0-3) Neutrophils # (Auto) 14.3x10^3uL (1.8-7.7) Lymphocytes # (Auto) 2.7x10^3/uL (1.0-4.8) Monocytes # (Auto) 1.1x10^3/uL (0.0-1.1) Eosinophils # (Auto) 0.0x10^3/uL (0.0-0.7) Basophils # (Auto) 0.1x10^3/uL (0.0-0.2) Sodium Level 141mmol/L (136-145) Potassium Level 3.9mmol/L (3.5-5.1) Chloride Level 104mmol/L (98-107) Carbon Dioxide Level 28mmol/L (21-32) Anion Gap 9 (6-14) Blood Urea Nitrogen 7mg/dL (7-20) Creatinine 0.6mg/dL (0.6-1.0) Estimated GFR (Cockcroft-Gault) 114.4 Glucose Level 100mg/dL (70-99) Calcium Level 9.3mg/dL (8.5-10.1) Laboratory Tests Test 09/25/16 09:00 09/26/16 05:45 Urine Test Negative (NEG) White Blood Count 18.1x10^3/uL (4.0-11.0) Red Blood Count 4.42x10^6/uL (3.50-5.40) Hemoglobin 13.9g/dL (12.0-15.5) Hematocrit 41.6% (36.0-47.0) Mean Corpuscular Volume 94fL (79-100) Mean Corpuscular Hemoglobin 32pg (25-35) Mean Corpuscular Hemoglobin Concent 34g/dL (31-37) Red Cell Distribution Width 13.2% (11.5-14.5) Platelet Count 289x10^3/uL (140-400) Neutrophils (%) (Auto) 79% (31-73) Lymphocytes (%) (Auto) 15% (24-48) Monocytes (%) (Auto) 6% (0-9) Eosinophils (%) (Auto) 0% (0-3) Basophils (%) (Auto) 1% (0-3) Neutrophils # (Auto) 14.3x10^3uL (1.8-7.7) Lymphocytes # (Auto) 2.7x10^3/uL (1.0-4.8) Monocytes # (Auto) 1.1x10^3/uL (0.0-1.1) Eosinophils # (Auto) 0.0x10^3/uL (0.0-0.7) Basophils # (Auto) 0.1x10^3/uL (0.0-0.2) Sodium Level 141mmol/L (136-145) Potassium Level 3.9mmol/L (3.5-5.1) Chloride Level 104mmol/L (98-107) Carbon Dioxide Level 28mmol/L (21-32) Anion Gap 9 (6-14) Blood Urea Nitrogen 7mg/dL (7-20) Creatinine 0.6mg/dL (0.6-1.0) Estimated GFR (Cockcroft-Gault) 114.4 Glucose Level 100mg/dL (70-99) Calcium Level 9.3mg/dL (8.5-10.1) Problem List Problems Medical Problems: (1) Chest pain Status: Acute (2) Hypokalemia Status: Acute Assessment/Plan S/P L/S Janell doing ok Elevated wbc, afebrile May wish to monitor 24 hours due to elevated wbc Problems: ASHUTOSH ENGEL MD Sep 26, 2016 08:48
[2016-09-26 09:07] LABS: PLT ESTIMATE ADEQUATE (ADEQUATE)
[2016-09-26] MEDS: ALPRAZOLAM 0.5 MG TABLET. PO PRN ×2 (12:44→21:15)
[2016-09-26] MEDS ORDERED: CYCLOBENZAPRINE 10 MG TABLET. PO PRN (13:30)
--- NOTE | 2016-09-26 15:23 | PDOC ---
PROGRESS NOTES Chief Complaint Chief Complaint Chest pain ASSESSMENT AND PLAN: 1. CP: noncardiac; cardiac W/U neg (see 2.) 2. GB hypokinesis: EF 2%; s/p CCY by Dr Luna on 09/25 3. Pain control: improving. narcotics, bowel regimen, simethicone 4. Leukocytosis: worsening. unclear etiology. r/o infection. rpt CBC in AM. monitor abd exam 5. Anxiety: on Prozac, xanax Vitals Vitals Vital Signs Date Time Temp Pulse Resp B/P Pulse Ox O2 Delivery O2 Flow Rate FiO2 09/26/16 14:56 97.7 90 18 120/78 97 Room Air 97.7 09/26/16 10:31 8.0 Physical Exam General: Alert, Oriented X3, Cooperative, mild distress Heart: Regular rate Lungs: Clear Abdomen: Normal bowel sounds, Soft, Other (post lap heath, port sites covered with gauze) Extremities: No edema Skin: No significant lesion Labs LABS Laboratory Tests Test 09/26/16 05:45 White Blood Count 18.1x10^3/uL (4.0-11.0) Red Blood Count 4.42x10^6/uL (3.50-5.40) Hemoglobin 13.9g/dL (12.0-15.5) Hematocrit 41.6% (36.0-47.0) Mean Corpuscular Volume 94fL (79-100) Mean Corpuscular Hemoglobin 32pg (25-35) Mean Corpuscular Hemoglobin Concent 34g/dL (31-37) Red Cell Distribution Width 13.2% (11.5-14.5) Platelet Count 289x10^3/uL (140-400) Neutrophils (%) (Auto) 79% (31-73) Lymphocytes (%) (Auto) 15% (24-48) Monocytes (%) (Auto) 6% (0-9) Eosinophils (%) (Auto) 0% (0-3) Basophils (%) (Auto) 1% (0-3) Neutrophils # (Auto) 14.3x10^3uL (1.8-7.7) Lymphocytes # (Auto) 2.7x10^3/uL (1.0-4.8) Monocytes # (Auto) 1.1x10^3/uL (0.0-1.1) Eosinophils # (Auto) 0.0x10^3/uL (0.0-0.7) Basophils # (Auto) 0.1x10^3/uL (0.0-0.2) Segmented Neutrophils % 78% (35-66) Band Neutrophils % 2% (0-9) Lymphocytes % 13% (24-48) Monocytes % 7% (0-10) Platelet Estimate Adequate (ADEQUATE) Sodium Level 141mmol/L (136-145) Potassium Level 3.9mmol/L (3.5-5.1) Chloride Level 104mmol/L (98-107) Carbon Dioxide Level 28mmol/L (21-32) Anion Gap 9 (6-14) Blood Urea Nitrogen 7mg/dL (7-20) Creatinine 0.6mg/dL (0.6-1.0) Estimated GFR (Cockcroft-Gault) 114.4 Glucose Level 100mg/dL (70-99) Calcium Level 9.3mg/dL (8.5-10.1) Review of Systems Review of Systems pain better with ambulation. + flatus. no nausea LIEN SOLIS MD Sep 26, 2016 15:22
[2016-09-26] MEDS: POLYETHYLENE GLYCOL 3350 17 GM PACKET. PO PRN (15:53)
[2016-09-26] MEDS: SIMETHICONE 80 MG TAB.CHEW PO PRN (15:53)
[2016-09-26 18:21] LABS: BILIRUBIN,URINE NEGATIVE (NEG); GLUCOSE,URINE NEGATIVE (NEG); NITRITE,URINE NEGATIVE (NEG); PH,URINE 6.5; PROTEIN,URINE NEGATIVE (NEG-TRACE); UROBILINOGEN,URINE 0.2 mg/dL (0.2 mg/dL)
[2016-09-26 18:26] LABS: BACTERIA,URINE FEW /HPF (0-FEW); RBC,URINE 0 /HPF (0-2); SQUAMOUS EPITHELIAL CELL,UR FEW /LPF; WBC,URINE RARE /HPF (0-4)
[2016-09-27] MEDS: HYDROCODONE/APAP 5/325MG TABLET. PO PRN ×2 (04:19→12:39)
[2016-09-27] MEDS: SIMETHICONE 80 MG TAB.CHEW PO PRN (04:22)
[2016-09-27 05:10] LABS: BASO # 0.1 x10^3/uL (0.0-0.2); BASO % 1 % (0-3); EOS % 0 % (0-3); HEMATOCRIT 40.8 % (36.0-47.0); HEMOGLOBIN 13.7 g/dL (12.0-15.5); LYMPH # 3.9 x10^3/uL (1.0-4.8); LYMPH % 30 % (24-48); MEAN CORPUSCULAR HEMOGLOBIN 32 pg (25-35); MEAN CORPUSCULAR HGB CONC 34 g/dL (31-37); MEAN CORPUSCULAR VOLUME 96 fL (79-100); MONO % 8 % (0-9); NEUT % 62 % (31-73); PLATELET COUNT 278 x10^3/uL (140-400); RED BLOOD COUNT 4.26 x10^6/uL (3.50-5.40); RED CELL DISTRIBUTION WIDTH 13.4 % (11.5-14.5); WHITE BLOOD COUNT 13.2 x10^3/uL (4.0-11.0)
[2016-09-27 05:28] LABS: CALCIUM 9.1 mg/dL (8.5-10.1); CREATININE 0.6 mg/dL (0.6-1.0); GFR 114.4; POTASSIUM 3.3 mmol/L (3.5-5.1)
[2016-09-27 07:00] VITALS: BP 137/80
[2016-09-27] MEDS ORDERED: PANTOPRAZOLE 40 MG TABLET.DR. PO SCH (07:30)
[2016-09-27] MEDS: POLYETHYLENE GLYCOL 3350 17 GM PACKET. PO PRN (08:52)
[2016-09-27] MEDS ORDERED: FLUOXETINE HCL 20 MG CAPSULE. PO SCH (09:00)
--- NOTE | 2016-09-27 09:04 | PDOC ---
SURGICAL PROGRESS NOTE Subjective Doing better, tolerating diet. Afebrile Vital Signs Vital Signs Date Time Temp Pulse Resp B/P Pulse Ox O2 Delivery O2 Flow Rate FiO2 09/27/16 07:00 97.7 73 16 137/80 95 Room Air 97.7 09/26/16 10:31 8.0 I&O Intake and Output 09/27/16 07:00 Intake Total 1620 ml Output Total 900 ml Balance 720 ml Intake Oral 1620 ml Output Urine Total 900 ml PATIENT HAS A FELDMAN: No General: Alert, Oriented X3, Cooperative, mild distress Abdomen: Normal bowel sounds, Soft, Other (mild umbilical tenderness) Labs Laboratory Tests Test 09/26/16 05:45 09/26/16 16:00 09/27/16 04:35 White Blood Count 18.1x10^3/uL (4.0-11.0) 13.2x10^3/uL (4.0-11.0) Red Blood Count 4.42x10^6/uL (3.50-5.40) 4.26x10^6/uL (3.50-5.40) Hemoglobin 13.9g/dL (12.0-15.5) 13.7g/dL (12.0-15.5) Hematocrit 41.6% (36.0-47.0) 40.8% (36.0-47.0) Mean Corpuscular Volume 94fL (79-100) 96fL (79-100) Mean Corpuscular Hemoglobin 32pg (25-35) 32pg (25-35) Mean Corpuscular Hemoglobin Concent 34g/dL (31-37) 34g/dL (31-37) Red Cell Distribution Width 13.2% (11.5-14.5) 13.4% (11.5-14.5) Platelet Count 289x10^3/uL (140-400) 278x10^3/uL (140-400) Neutrophils (%) (Auto) 79% (31-73) 62% (31-73) Lymphocytes (%) (Auto) 15% (24-48) 30% (24-48) Monocytes (%) (Auto) 6% (0-9) 8% (0-9) Eosinophils (%) (Auto) 0% (0-3) 0% (0-3) Basophils (%) (Auto) 1% (0-3) 1% (0-3) Neutrophils # (Auto) 14.3x10^3uL (1.8-7.7) 8.1x10^3uL (1.8-7.7) Lymphocytes # (Auto) 2.7x10^3/uL (1.0-4.8) 3.9x10^3/uL (1.0-4.8) Monocytes # (Auto) 1.1x10^3/uL (0.0-1.1) 1.1x10^3/uL (0.0-1.1) Eosinophils # (Auto) 0.0x10^3/uL (0.0-0.7) 0.0x10^3/uL (0.0-0.7) Basophils # (Auto) 0.1x10^3/uL (0.0-0.2) 0.1x10^3/uL (0.0-0.2) Segmented Neutrophils % 78% (35-66) Band Neutrophils % 2% (0-9) Lymphocytes % 13% (24-48) Monocytes % 7% (0-10) Platelet Estimate Adequate (ADEQUATE) Sodium Level 141mmol/L (136-145) 143mmol/L (136-145) Potassium Level 3.9mmol/L (3.5-5.1) 3.3mmol/L (3.5-5.1) Chloride Level 104mmol/L (98-107) 105mmol/L (98-107) Carbon Dioxide Level 28mmol/L (21-32) 31mmol/L (21-32) Anion Gap 9 (6-14) 7 (6-14) Blood Urea Nitrogen 7mg/dL (7-20) 7mg/dL (7-20) Creatinine 0.6mg/dL (0.6-1.0) 0.6mg/dL (0.6-1.0) Estimated GFR (Cockcroft-Gault) 114.4 114.4 Glucose Level 100mg/dL (70-99) 101mg/dL (70-99) Calcium Level 9.3mg/dL (8.5-10.1) 9.1mg/dL (8.5-10.1) Urine Collection Type Unknown Urine Color Colorless Urine Clarity Clear Urine pH 6.5 Urine Specific [place] <=1.005 Urine Protein Negativemg/dL (NEG-TRACE) Urine Glucose (UA) Negativemg/dL (NEG) Urine Ketones (Stick) Negativemg/dL (NEG) Urine Blood Negative (NEG) Urine Nitrite Negative (NEG) Urine Bilirubin Negative (NEG) Urine Urobilinogen Dipstick 0.2mg/dL (0.2 mg/dL) Urine Leukocyte Esterase Negative (NEG) Urine RBC 0/HPF (0-2) Urine WBC Rare/HPF (0-4) Urine Squamous Epithelial Cells Few/LPF Urine Bacteria Few/HPF (0-FEW) Laboratory Tests Test 09/26/16 16:00 09/27/16 04:35 Urine Collection Type Unknown Urine Color Colorless Urine Clarity Clear Urine pH 6.5 Urine Specific [place] <=1.005 Urine Protein Negativemg/dL (NEG-TRACE) Urine Glucose (UA) Negativemg/dL (NEG) Urine Ketones (Stick) Negativemg/dL (NEG) Urine Blood Negative (NEG) Urine Nitrite Negative (NEG) Urine Bilirubin Negative (NEG) Urine Urobilinogen Dipstick 0.2mg/dL (0.2 mg/dL) Urine Leukocyte Esterase Negative (NEG) Urine RBC 0/HPF (0-2) Urine WBC Rare/HPF (0-4) Urine Squamous Epithelial Cells Few/LPF Urine Bacteria Few/HPF (0-FEW) White Blood Count 13.2x10^3/uL (4.0-11.0) Red Blood Count 4.26x10^6/uL (3.50-5.40) Hemoglobin 13.7g/dL (12.0-15.5) Hematocrit 40.8% (36.0-47.0) Mean Corpuscular Volume 96fL (79-100) Mean Corpuscular Hemoglobin 32pg (25-35) Mean Corpuscular Hemoglobin Concent 34g/dL (31-37) Red Cell Distribution Width 13.4% (11.5-14.5) Platelet Count 278x10^3/uL (140-400) Neutrophils (%) (Auto) 62% (31-73) Lymphocytes (%) (Auto) 30% (24-48) Monocytes (%) (Auto) 8% (0-9) Eosinophils (%) (Auto) 0% (0-3) Basophils (%) (Auto) 1% (0-3) Neutrophils # (Auto) 8.1x10^3uL (1.8-7.7) Lymphocytes # (Auto) 3.9x10^3/uL (1.0-4.8) Monocytes # (Auto) 1.1x10^3/uL (0.0-1.1) Eosinophils # (Auto) 0.0x10^3/uL (0.0-0.7) Basophils # (Auto) 0.1x10^3/uL (0.0-0.2) Sodium Level 143mmol/L (136-145) Potassium Level 3.3mmol/L (3.5-5.1) Chloride Level 105mmol/L (98-107) Carbon Dioxide Level 31mmol/L (21-32) Anion Gap 7 (6-14) Blood Urea Nitrogen 7mg/dL (7-20) Creatinine 0.6mg/dL (0.6-1.0) Estimated GFR (Cockcroft-Gault) 114.4 Glucose Level 101mg/dL (70-99) Calcium Level 9.1mg/dL (8.5-10.1) Problem List Problems Medical Problems: (1) Chest pain Status: Acute (2) Hypokalemia Status: Acute Assessment/Plan S/P L/S Janell, improved, wbc down 13,000 no fevers and tolerating diet OK to D/C from surgical point of view. Problems: ASHUTOSH ENGEL MD Sep 27, 2016 9:04 am
[2016-09-27 12:00] VITALS: BP 117/76
[2016-09-27] MEDS: ALPRAZOLAM 0.5 MG TABLET. PO PRN (13:42)
--- NOTE | 2016-09-27 14:17 | PDOC ---
PROGRESS NOTES Chief Complaint Chief Complaint Chest pain ASSESSMENT AND PLAN: 1. CP: noncardiac; cardiac W/U neg (see 2.) 2. GB hypokinesis: EF 2%; s/p CCY by Dr Luna on 09/25 3. Pain control: improving. narcotics, bowel regimen, simethicone 4. Leukocytosis: much improved. no signs of infect. 5. Anxiety: on Prozac, xanax 5. Dispo: home Vitals Vitals Vital Signs Date Time Temp Pulse Resp B/P Pulse Ox O2 Delivery O2 Flow Rate FiO2 09/27/16 12:39 97 Room Air 8.0 09/27/16 12:00 97.9 76 16 117/76 97.9 Physical Exam General: Alert, Oriented X3, Cooperative, No acute distress Heart: Regular rate Lungs: Clear Abdomen: Normal bowel sounds, Soft, Other (mild umbilical tenderness, lap incisions clean and dry) Extremities: No edema Skin: No significant lesion Labs LABS Laboratory Tests Test 09/26/16 16:00 09/27/16 04:35 Urine Collection Type Unknown Urine Color Colorless Urine Clarity Clear Urine pH 6.5 Urine Specific [place] <=1.005 Urine Protein Negativemg/dL (NEG-TRACE) Urine Glucose (UA) Negativemg/dL (NEG) Urine Ketones (Stick) Negativemg/dL (NEG) Urine Blood Negative (NEG) Urine Nitrite Negative (NEG) Urine Bilirubin Negative (NEG) Urine Urobilinogen Dipstick 0.2mg/dL (0.2 mg/dL) Urine Leukocyte Esterase Negative (NEG) Urine RBC 0/HPF (0-2) Urine WBC Rare/HPF (0-4) Urine Squamous Epithelial Cells Few/LPF Urine Bacteria Few/HPF (0-FEW) White Blood Count 13.2x10^3/uL (4.0-11.0) Red Blood Count 4.26x10^6/uL (3.50-5.40) Hemoglobin 13.7g/dL (12.0-15.5) Hematocrit 40.8% (36.0-47.0) Mean Corpuscular Volume 96fL (79-100) Mean Corpuscular Hemoglobin 32pg (25-35) Mean Corpuscular Hemoglobin Concent 34g/dL (31-37) Red Cell Distribution Width 13.4% (11.5-14.5) Platelet Count 278x10^3/uL (140-400) Neutrophils (%) (Auto) 62% (31-73) Lymphocytes (%) (Auto) 30% (24-48) Monocytes (%) (Auto) 8% (0-9) Eosinophils (%) (Auto) 0% (0-3) Basophils (%) (Auto) 1% (0-3) Neutrophils # (Auto) 8.1x10^3uL (1.8-7.7) Lymphocytes # (Auto) 3.9x10^3/uL (1.0-4.8) Monocytes # (Auto) 1.1x10^3/uL (0.0-1.1) Eosinophils # (Auto) 0.0x10^3/uL (0.0-0.7) Basophils # (Auto) 0.1x10^3/uL (0.0-0.2) Sodium Level 143mmol/L (136-145) Potassium Level 3.3mmol/L (3.5-5.1) Chloride Level 105mmol/L (98-107) Carbon Dioxide Level 31mmol/L (21-32) Anion Gap 7 (6-14) Blood Urea Nitrogen 7mg/dL (7-20) Creatinine 0.6mg/dL (0.6-1.0) Estimated GFR (Cockcroft-Gault) 114.4 Glucose Level 101mg/dL (70-99) Calcium Level 9.1mg/dL (8.5-10.1) Review of Systems Review of Systems pain much better. no f/C, tolerating PO LIEN SOLIS MD Sep 27, 2016 14:17
[2016-09-27 14:45] VITALS: BP 131/77
[2016-09-27] MEDS ORDERED: HYDR-971 PO (15:10)
--- NOTE | 2016-09-27 22:39 | DS ---
DATE OF DISCHARGE: 09/27/2016 CHIEF COMPLAINT: Chest pain. HOSPITAL COURSE: The patient is a 36-year-old woman who initially presented with chest pain. She was initially admitted for rule out MA. This indeed was accomplished. Chest pain, however, was further evaluated with HIDA scan of her gallbladder showing a minimal ejection fraction. She therefore underwent a cholecystectomy by Dr. Luna on 09/25/2016. She recovered well. However, on postop day 1, white count was significantly elevated over previous values and she was therefore kept for an additional day of observation. Without any further intervention, her white count actually decreased and patient's abdominal symptoms improved. She was therefore deemed stable for discharge. DISCHARGE DATE: 09/27/2016. PHYSICAL EXAMINATION: Please refer to note from same day. DISCHARGE DIAGNOSIS: Cholecystitis, status post laparoscopic cholecystectomy on 09/25/2016. DISCHARGE DISPOSITION: To home. DISCHARGE CONDITION: Improved. DISCHARGE MEDICATIONS: Please refer to MAR. DISCHARGE INSTRUCTIONS: The patient will follow up with Dr. Luna for wound check in 10-14 days. The patient will follow up with PCP in 1 week. LIEN SOLIS MD DR: UR/nts JOB#: [id number] / [id number]
--- NOTE | 2016-09-28 15:33 | PATHOLOGY ---
PATHOLOGY REPORT * * * * * * * * FINAL DIAGNOSIS: Gallbladder, laparoscopic cholecystectomy: - Cholesterolosis. - Chronic cholecystitis. COMMENT: There are no calculi identified within the gallbladder lumen or specimen container. There is no evidence of malignancy. (JPM:; d/t: 09/28/16) REPORT ELECTRONICALLY SIGNED BY: Matthew Singh M.D. DATE/TIME: 09/28/2016 15:32 * * * * * * * * GROSS PATHOLOGY: Received in formalin labeled "Pema Fisher, gallbladder and contents," is a 6.3 x 3.3 x 2.5 cm, previously punctured gallbladder with pink-tuttle to adipose covered serosal surfaces. Opening the gallbladder reveals a velvety, bile-stained mucosa with mild, diffuse cholesterolosis and an average wall thickness of 0.1 cm. Calculi are not present and no masses are noted grossly. Salon Manager sections from the body and fundus are submitted along with the proximal margin in cassette A1. (CAA; 09/25/2016) INITIAL CPT CODE(S): A; 12159 Professional services [place] [address] Technical services performed by [facility] at [address] [place] [address], [facility] [address] [address]. SPECIMEN(S) RECEIVED: A.Gallbladder and contents CLINICAL HISTORY: Biliary dyskinesia PATIENT: PEMA FISHER /AGE: 2 1980 (Age: 36) PATIENT #: [id number] ALT CASE #: SPECIMEN COLLECTION DATE: 09/25/2016 SPECIMEN RECEIVED DATE: 09/25/2016 [facility] - [id number] [place] [address] - PHONE: [phone] * * * END OF REPORT * * *
== END 2016-09-27 15:31 | disposition home or self-care (01) | DRG 418 ==
LOC: ER 09:23 → 5 NORTH 11:19
PROVIDERS: ADMIT Internal Medicine; ATTEND Internal Medicine
PROC: 0FT44ZZ Resection of Gallbladder, Percutaneous Endoscopic Approach (ICD-10-PCS; principal; 2016-09-25 13:00)
DX: K81.1 Chronic cholecystitis (principal); E87.0 Hyperosmolality and hypernatremia; K82.8 Other specified diseases of gallbladder; E87.6 Hypokalemia; K21.0 Gastro-esophageal reflux disease with esophagitis; G47.00 Insomnia, unspecified; F41.9 Anxiety disorder, unspecified; E66.9 Obesity, unspecified; J30.9 Allergic rhinitis, unspecified; K59.00 Constipation, unspecified; K76.0 Fatty (change of) liver, not elsewhere classified; F53 Mental and behavioral disorders associated with the puerperium, not elsewhere classified; D72.829 Elevated white blood cell count, unspecified; G89.29 Other chronic pain; R55 Syncope and collapse; Z68.35 Body mass index [BMI] 35.0-35.9, adult
CPT/HCPCS: 36415; 71020; 71250; 78226; 80048; 80053; 80061; 80074; 81001; 81025; 83735; 83880; 84443; 84484; 85007; 85027; 86703; 88304; 93005; 93306; 96374; 96375; A9537; C1782; J0690; J1100; J2060; J2270; J2405; J2704; J2710; J2805; J3010; J3490; J7030; Q9967; 99285-25

== ENCOUNTER 2018-11-13 20:35 | Emergency (ER) | payer BC, SELFPAY ==
[~2018-11-13] VITALS: Ht 154.9 cm; Wt 104.3 kg
[~2018-11-13 20:35] MED LIST changes: +ACET325T9 PO; +FLUT9.9S NS; +HYDR-3164 PO; -HYDR-971 PO; +OMEP20CA10 PO; +OXYM30SP NS
[2018-11-13 20:40] VITALS: BP 127/87
--- NOTE | 2018-11-13 22:32 | PHYS DOC ---
Past Medical History Past Medical History: Diabetes-Type II, GERD Additional Past Medical Histor: hiatal hernia (SAIDA TRIANA APRN) Past Surgical History: Cholecystectomy, Other Additional Past Surgical Histo: EGD, hital hernia (SAIDA TRIANA APRN) Alcohol Use: None Drug Use: None (SAIDA TRIANA APRN) Adult General Chief Complaint Chief Complaint: KNEE INJURY [facility] HPI Patient is a 38 year old [f] who presents with [left posterior knee pain. Patient reports she had been walking earlier today when she had started to fall with twisting her left knee having some pain medially to her left knee. Reports she is been walking and having no other issues with that. States she does not want x-ray of her knee today. Does report she is having increased amount of stress recently and has some family issues. Reports she has been fighting with her family members has had some initial issues states that she does not feel safe going home to her she does have plan to go home to stay with her mother. States she has had some issues with anxiety in the past. Denies any thoughts of self-harm or harm others. States she does not feel depressed he just feels little stressed with everything she's been dealing with recently.] (SAIDA TRIANA APRN) Review of Systems Review of Systems Constitutional: Denies fever or chills [] Eyes: Denies change in visual acuity, redness, or eye pain [] HENT: Denies nasal congestion or sore throat [] Respiratory: Denies cough or shortness of breath [] Cardiovascular: No additional information not addressed in HPI [] GI: Denies abdominal pain, nausea, vomiting, bloody stools or diarrhea [] : Denies dysuria or hematuria [] Musculoskeletal: Denies back pain or joint pain. Complains of pain to left medial knee [] Integument: Denies rash or skin lesions [] Neurologic: Denies headache, focal weakness or sensory changes [] [] All other systems were reviewed and found to be within normal limits, except as documented in this note. (SAIDA TRIANA APRN) Allergies Allergies Allergies Coded Allergies Type Severity Reaction Last Updated Verified No Known Drug Allergies 08/03/16 No (TRACEY GREEN DO) Physical Exam Physical Exam Constitutional: Well developed, well nourished, no acute distress, non-toxic appearance. [] HENT: Normocephalic, atraumatic, bilateral external ears normal, oropharynx moist, no oral exudates, nose normal. [] Eyes: PERRLA, EOMI, conjunctiva normal, no discharge. [] Neck: Normal range of motion, no tenderness, supple, no stridor. [] Cardiovascular:Heart rate regular rhythm, no murmur [] Lungs & Thorax: Bilateral breath sounds clear to auscultation [] Abdomen: Bowel sounds normal, soft, no tenderness, no masses, no pulsatile masses. [] Skin: Warm, dry, no erythema, no rash. [] Back: No tenderness, no CVA tenderness. [] Extremities: No tenderness, no cyanosis, no clubbing, ROM intact, no edema. Minimal discomfort on medial posterior leg assessment no bruising no trauma noted [] Neurologic: Alert and oriented X 3, normal motor function, normal sensory function, no focal deficits noted. [] Psychologic: Tearful affect. No thoughts of self-harm noted no thoughts of harm to others. Noted some anxiety, tearful intermittently.. [] (SAIDA TRIANA APRN) Current Patient Data Vital Signs Vital Signs Date Time Temp Pulse Resp B/P (MAP) Pulse Ox O2 Delivery O2 Flow Rate FiO2 11/13/18 20:40 98.1 91 16 127/87 (100) 98 Room Air 98.1 (TRACEY GREEN DO) EKG EKG [] (SAIDA TRIANA APRN) Radiology/Procedures Radiology/Procedures [] (SAIDA TRIANA APRN) Course & Med Decision Making Course & Med Decision Making Pertinent Labs and Imaging studies reviewed. (See chart for details) [After thorough and lengthy discussion with patient regarding her stresses, she continues to deny any thoughts of self-harm or harm others reports she just feels really stressed. States she just feels depressed and mostly been family stresses that are causing her issues tonight little worse than usual. Associated plan to go home with her mother. Did discuss options for counselor. Did discuss options for following up with clergy who She Can Talk to. Discussed Use of Ice and Tylenol and ibuprofen for pain as needed.] (SAIDA TRIANA APRN) Dragon Disclaimer Dragon Disclaimer This electronic medical record was generated, in whole or in part, using a voice recognition dictation system. (SAIDA TRIANA APRN) Departure Departure Impression: Primary Impression: Stress at home Additional Impressions: Fatigue Knee pain Disposition: HOME, SELF-CARE Condition: Referrals: RADHA MCCLURE TUBE MACHINE OPERATOR (PCP) Patient Instructions: Knee Pain, [id number], Stress Additional Instructions: As we discussed go home and stay with your mom rachel. Try to talk with your family over the stress you are having at home. Tried to talk to a counselor if possible. If not he may consider talking to a modular home crew member Attending Signature Attending Signature I have reviewed the PA/TUBE MACHINE OPERATOR's note and plan of care. I was available for consultation as needed during the patient's visit in the emergency department. I agree with the clinical impression, plan, and disposition. (TRACEY GREEN DO) Problem Qualifiers SAIDA TRIANA APRN November 13, 2018 22:32 TRACEY GREEN DO November 14, 2018 05:22
== END 2018-11-13 22:42 | disposition home or self-care (01) ==
LOC: EEVIPCON 20:35 → ER 20:35
DX: M25.562 Pain in left knee (principal); R53.83 Other fatigue; Z73.3 Stress, not elsewhere classified; F41.9 Anxiety disorder, unspecified; E11.9 Type 2 diabetes mellitus without complications; K21.9 Gastro-esophageal reflux disease without esophagitis; Z90.49 Acquired absence of other specified parts of digestive tract
CPT/HCPCS: 99281